=== PATIENT | male | born 1990 | race Caucasian/White ===

== ENCOUNTER 2018-12-27 06:55 | Emergency (ER) | payer SELFPAY ==
[~2018-12-27] VITALS: Ht 182.9 cm; Wt 163.3 kg
[~2018-12-27 06:55] MED LIST: ALPR0.5T7; CARV12.53; LISI1TAB10; PANT40TA3; SUCR1TAB
--- NOTE | 2018-12-27 07:13 | ED Cardiac General ---
History of Present Illness General Chief Complaint: Chest Pain Stated Complaint: CHEST PAIN History of Present Illness Date Seen by Provider: Dec 27, 2018 Time Seen by Provider: 07:05 Initial Comments Patient is a 28 y/o male who presents to the ER this morning c/o sternal CP. Pain started earlier this am after he awoke. He describes a sharp, sternal pain that is non-radiating. Pain is worse when he takes a deep breath and with some movements. He had some associated tightness in his chest and perceived this am that he was having some difficulty breathing. Symptoms spontaneously improved prior to arrival to the ER. He has a prior hx of similar symptoms which he states has been attributable to costochondritis. No recent fever, chills, cough. No recent trauma. Allergies and Home Medications Allergies Coded Allergies: Penicillins (Unverified Allergy, Unknown, 11/19/15) Home Medications Ibuprofen 800 Mg Tablet, 800 MG PO Q8H PRN for PAIN Prescribed by: WILLIE VALDERRAMA on 12/27/18 0803 Tramadol HCl 50 Mg Tablet, 50 MG PO bidprn PRN for PAIN Prescribed by: WILLIE VALDERRAMA on 12/27/18 0804 Patient Home Medication List Home Medication List Reviewed: Yes Review of Systems Review of Systems Constitutional: no symptoms reported EENTM: No Symptoms Reported Respiratory: No Symptoms Reported Cardiovascular: See HPI Gastrointestinal: No Symptoms Reported Genitourinary: No Symptoms Reported Musculoskeletal: no symptoms reported Skin: no symptoms reported Psychiatric/Neurological: No Symptoms Reported Past Driubyf-Pcbwwv-Owpzsj Hx Patient Social History Recent Foreign Travel: No Contact w/Someone Who Travel: No Past Medical History Adenoidectomy, Ear Surgery, Tonsillectomy Hypertension Reproductive Disorders: No Sexually Transmitted Disease: No Gastroesophageal Reflux, Irritable Bowel Anxiety Physical Exam Vital Signs Vital Signs - First Documented 12/27/18 07:04 Temp 97.8 Pulse 72 Resp 16 B/P (MAP) 152/95 (114) Pulse Ox 99 Capillary Refill : Height, Weight, BMI Height: '" Weight: lbs. oz. kg; BMI Method: General Appearance: No Apparent Distress HEENT: PERRL/EOMI, TMs Normal, Normal ENT Inspection Neck: Full Range of Motion, Normal Inspection Respiratory: Chest Non Tender, Lungs Clear, Normal Breath Sounds, No Accessory Muscle Use, No Respiratory Distress Cardiovascular: Regular Rate, Rhythm, No Edema Gastrointestinal: Normal Bowel Sounds Genital/Rectal: Normal Genital Exam Extremity: Normal Capillary Refill Neurologic/Psychiatric: Alert, Oriented x3 Skin: Normal Color, Warm/Dry Progress/Results/Core Measures Results/Orders Lab Results Laboratory Tests Test 12/27/18 07:25 Range/Units Sodium Level 141 135-145 MMOL/L Potassium Level 4.2 3.6-5.0 MMOL/L Chloride Level 106 98-107 MMOL/L Carbon Dioxide Level 16 L 21-32 MMOL/L Anion Gap 19 H 5-14 MMOL/L Blood Urea Nitrogen 13 7-18 MG/DL Creatinine 0.69 0.60-1.30 MG/DL Estimat Glomerular Filtration Rate > 60 BUN/Creatinine Ratio 19 Glucose Level 101 70-105 MG/DL Calcium Level 8.7 8.5-10.1 MG/DL Troponin T < 6 <=15 NG/L My Orders Orders - WILLIE VALDERRAMA DO Chest Pa/Lat (2 View) (12/27/18 07:16) Basic Metabolic Panel (12/27/18 07:16) Ibuprofen Tablet (Motrin Tablet) (12/27/18 07:30) Ekg Tracing (12/27/18 07:48) Medications Given in ED Current Medications Medications Dose Ordered Sig/Adela Route Start Time Stop Time Status Last Admin Dose Admin Ibuprofen 800 mg ONCE ONCE PO 12/27/18 07:30 12/27/18 07:31 DC 12/27/18 07:23 800 MG Vital Signs/I&O 12/27/18 07:04 Temp 97.8 Pulse 72 Resp 16 B/P (MAP) 152/95 (114) Pulse Ox 99 Progress Progress Note : Time: 07:21 Progress Note Patient is seen and examined. No acute distress. Sx that seem most c/w pleuritic vs costochondritic chest pain. Has Hx of HTN. EKG, troponin, CXR ordered. HEART Score: History: 0 EK Age: 1 Risk factors: 1 Troponin: 0 Total: 1 PERC: negative 08:00: Troponin is not elevated. BMP is revealing for mild anion gap and low CO2 most likely consistent with some mild dehydration symptoms. The patient is not ill-appearing. Plan is for discharge home. He is given a prescription for ibuprofen and tramadol for more severe pain. Patient will follow up with his primary care doctor or return to the ER for any new or worsening symptoms. With a heart score of 1 the patient has a very low risk of adverse outcome from a cardiac event. EKG is unchanged from prior. Initial ECG Impression Date: Dec 27, 2018 Initial ECG Impression Time: 07:50 Initial ECG Rate: 56 Initial ECG Rhythm: Normal Sinus, S.Jeffrey Initial ECG Intervals: Normal Initial ECG Impression: Normal Initial ECG Comparisson: Unchanged Departure Impression Primary Impression: Chest pain Disposition: HOME, SELF-CARE Condition: Stable Departure-Patient Inst. Referrals: NO,LOCAL PHYSICIAN (PCP/Family) Primary Care Physician Patient Instructions: Chest Pain That Is Not Caused by the Heart (DC) Scripts Tramadol HCl (Tramadol HCl) 50 Mg Tablet 50 MG PO bidprn PRN for PAIN, #10 TAB 0 Refills Prov: WILLIE VALDERRAMA DO 12/27/18 Ibuprofen (Ibuprofen) 800 Mg Tablet 800 MG PO Q8H PRN for PAIN, #30 TAB 0 Refills Prov: WILLIE VALDERRAMA DO 12/27/18 WILLIE VALDERRAMA DO Dec 27, 2018 07:13
[2018-12-27] MEDS ORDERED: IBUPROFEN 800 MG (MOTRIN) TAB PO ONE (07:30)
[2018-12-27 07:57] LABS: BUN/CREATININE RATIO 19; CALCIUM 8.7 MG/DL (8.5-10.1); CARBON DIOXIDE 16 MMOL/L (21-32); CHLORIDE 106 MMOL/L (98-107); CREATININE SERUM 0.69 MG/DL (0.60-1.30); GFR ESTIMATED > 60; GLUCOSE 101 MG/DL (70-105); POTASSIUM 4.2 MMOL/L (3.6-5.0); SODIUM 141 MMOL/L (135-145)
--- NOTE | 2018-12-27 07:58 | Diagnostic Imaging Report ---
INDICATION: Chest pain and shortness of breath. FINDINGS: The lungs demonstrate no focal pulmonary infiltrate or consolidation. There is no effusion. There is no pneumothorax. Heart size and mediastinal contours are appropriate. Pulmonary vascularity appears within normal limits. There is no acute osseous abnormality. IMPRESSION: 1. No radiographic evidence of an acute cardiopulmonary process. Dictated by: Dictated on workstation # [id number]
[2018-12-27] MEDS ORDERED: IBUP-1780 PO (08:03)
[2018-12-27] MEDS ORDERED: TRAM50TA2 PO (08:04)
[2018-12-27 08:09] VITALS: BP 143/82
--- OUTSIDE RECORDS SUMMARY | 2018-12-27 15:39 | XMS REPORT | Clinical Summary ---
Author Author [facility] Organization [facility] Address Unknown Phone Unavailable Care Team Providers Care Pharmacy Grad Intern Name Role Phone Francisco Lui MD Unavailable Uche Esparza MD Unavailable Source Comments Some departments are not documenting in the electronic medical record. If you do not see the information that you expected, contact Release of Information in the Health Information Management department at [phone] for further assistance in locating additional records.[facility] Allergies Comments Active Allergy Reactions Severity Noted Date Penicillins HIVES Medium 12/06/2015 Medications End Date Status Medication Sig Dispensed Refills Start Date Active ondansetron (ZOFRAN ODT) Take 4 mg by 0 4 mg rapid dissolve mouth every 8 tablet hours as needed for Nausea. Active pantoprazole DR Take 40 mg by 0 (PROTONIX) 40 mg tablet mouth daily. Active promethazine (PHENERGAN) Take 25 mg by 0 25 mg tablet mouth every 6 hours as needed for Nausea. Active sucralfate (CARAFATE) 1 Take 1 g by 0 gram tablet mouth every 6 hours. Active zolpidem (AMBIEN) 10 mg Take 10 mg by 0 tablet mouth at bedtime as needed for Sleep. Active ALPRAZolam (XANAX) 1 mg Take 1 mg by 0 tablet mouth at bedtime as needed. Active carvedilol (COREG) 25 mg Take 25 mg by 0 tablet mouth twice daily with meals. Active fluticasone (FLONASE) 50 Apply 2 0 mcg/actuation nasal spray Sprays to each nostril as directed daily. Active HYDROcodone/acetaminophen Take 1 Tab by 0 (NORCO; VICODIN) 5-325 mg mouth every 4 tablet hours as needed for Pain Active lisinopril/hydrochlorothi Take 1 Tab by 0 azide (ZESTORETIC) 20/25 mouth daily. tablet 1 Tab Active nortriptyline (PAMELOR) Take 1 Cap by 30 Cap 3 25 mg capsuleIndications: mouth at 6 Right upper quadrant bedtime abdominal pain daily. Active Problems Not on file Family History Medical History Relation Name Comments Hypertension Father Anxiety Mother COPD Mother Diabetes Mother Emphysema Mother Heart problem Sister Relation Name Status Comments Brother Alive Father Alive Mother Alive Sister Alive Social History Date Tobacco Use Types Packs/Day Years Used Quit: 12/06/2010 Former Smoker Smokeless Tobacco: Never Used Alcohol Use Drinks/Week oz/Week Comments No 0 Standard 0.0 drinks or equivalent Sex Assigned at Date Recorded Not on file Industry Job Start Date Occupation Not on file Not on file Not on file Travel End Travel History Travel Start No recent travel history available. Last Filed Vital Signs Time Taken Vital Sign Reading 12/06/2015 10:10 AM [employer] Blood Pressure 122/68 12/06/2015 10:10 AM [employer] Pulse 81 12/06/2015 10:10 AM [employer] Temperature 36.4 C (97.6 F) 12/06/2015 10:10 AM [employer] Respiratory Rate 17 - Oxygen Saturation - - Inhaled Oxygen - Concentration 12/06/2015 10:10 AM [employer] Weight 206.4 kg (455 lb 1.6 oz) 12/06/2015 10:10 AM [employer] Height 182.9 cm (6') 12/06/2015 10:10 AM [employer] Body Mass Index 61.72 Plan of Treatment Health Maintenance Due Date Last Done Comments PHYSICAL (COMPREHENSIVE) 1997 EXAM HIV SCREENING 2005 DTAP/TDAP VACCINES ( - 2008 Tdap) INFLUENZA VACCINE 05/27/2019 Results Not on filefrom Last 3 Months Insurance Payer Benefit Subscriber ID Type Phone Address Plan / Group [employer] CIGNA xxxxxxxxxxxx PPO NETWORK [facility] - [id number] Advance Directives Patient has advance care planning documents on file. For more information, please contact: [facility] [address] [place] [address]
--- OUTSIDE RECORDS SUMMARY | 2018-12-27 15:39 | XMS REPORT | Continuity of Care Document ---
Author Author [facility] Organization [facility] Address Unknown Phone Unavailable Allergies Active Description Code Type Severity Reaction Onset Reported/Identified Relationship to Patient Clinical Status Yes Penicillins [id number] Drug Allergy Unknown N/A 11/19/2015 Medications There is no data. Problems Date Dx Coded Attending Type Code Diagnosis Diagnosed By 11/19/2015 CARLOS ALBERTO BENJAMIN MD Ot K58.9 IRRITABLE BOWEL SYNDROME WITHOUT DIARRHE 11/19/2015 CARLOS ALBERTO BENJAMIN MD Ot K59.00 CONSTIPATION, UNSPECIFIED 11/19/2015 CARLOS ALBERTO BENJAMIN MD Ot R10.33 PERIUMBILICAL PAIN Procedures There is no data. Results There is no data. Encounters ACCT No. Visit Date/Time Discharge Status Pt. Type Provider Facility Loc./Unit Complaint [id number] 11/19/2015 12:19:00 11/19/2015 14:41:00 DIS Emergency CARLOS ALBERTO BENJAMIN MD [facility] ER
== END 2018-12-27 08:15 | disposition home or self-care (01) ==
LOC: EDUNIT# 06:55 → ER FS 06:58
DX: R07.81 Pleurodynia (principal); I10 Essential (primary) hypertension; K21.9 Gastro-esophageal reflux disease without esophagitis; K58.9 Irritable bowel syndrome, unspecified; F41.9 Anxiety disorder, unspecified; Z88.0 Allergy status to penicillin; Z90.89 Acquired absence of other organs
CPT/HCPCS: 36415; 71046; 80048; 84484

== ENCOUNTER 2019-01-13 05:17 | Emergency (ER) | payer SELFPAY ==
[~2019-01-13] VITALS: Ht 182.9 cm; Wt 163.3 kg
[~2019-01-13 05:17] MED LIST changes: +IBUP-1780 PO; +TRAM50TA2 PO
--- OUTSIDE RECORDS SUMMARY | 2019-01-13 05:24 | XMS REPORT | Clinical Summary ---
Author Author [facility] Organization [facility] Address Unknown Phone Unavailable Care Team Providers Care Typing Bookkeeper Name Role Phone Francisco Lui MD Unavailable Uche Esparza MD Unavailable Source Comments Some departments are not documenting in the electronic medical record. If you do not see the information that you expected, contact Release of Information in the Health Information Management department at [phone] for further assistance in locating additional records.[facility] Allergies Comments Active Allergy Reactions Severity Noted [...] Taken Vital Sign Reading 12/06/2015 10:10 AM [employer] Blood Pressure 122/68 12/06/2015 10:10 AM [employer] Pulse 81 12/06/2015 10:10 AM [employer] IN[employer] Temperature 36.4 C (97.6 F) 12/06/2015 10:10 AM [employer] Respiratory Rate 17 - Oxygen Saturation - - Inhaled Oxygen - Concentration 12/06/2015 10:10 AM [employer] INST[employer] Weight 206.4 kg (455 lb 1.6 oz) 12/06/2015 10:10 AM [employer] IN[employer] Height 182.9 cm (6') 12/06/2015 10:10 AM [employer] IN[employer] Body Mass Index 61.72 Plan of Treatment Health Maintenance Due Date Last Done Comments PHYSICAL (COMPREHENSIVE) 1997 EXAM HIV SCREENING 2005 DTAP/TDAP VACCINES ( - 2008 Tdap) INFLUENZA VACCINE 05/27/2018 Results Not on filefrom Last 3 Months Insurance Payer Benefit Subscriber ID Type Phone Address Plan / Group CIG[employer] CIGNA xxxxxxxxxxxx PPO NETWORK [facility] - [id number] Advance Directives Patient has advance care planning documents on file. For more information, please contact: [facility] [address] [place] [address]
--- OUTSIDE RECORDS SUMMARY | 2019-01-13 05:25 | XMS REPORT | Continuity of Care Document ---
Author Author [facility] Organization [facility] Address Unknown Phone Unavailable Allergies Active Description Code Type Severity Reaction Onset Reported/Identified Relationship to Patient Clinical Status Yes Penicillins [id number] Drug Allergy Unknown N/A 11/19/2015 Medications There is no data. Problems Date Dx Coded Attending Type Code Diagnosis Diagnosed By 11/19/2015 CARLOS ALBERTO BENJAMIN MD, Ot K58.9 IRRITABLE BOWEL SYNDROME WITHOUT DIARRHE 11/19/2015 CARLOS ALBERTO BENJAMIN MD Ot K59.00 CONSTIPATION, UNSPECIFIED 11/19/2015 CARLOS ALBERTO BENJAMIN MD Ot R10.33 PERIUMBILICAL PAIN 12/29/2018 WILLIE VALDERRAMA DO Ot F41.9 ANXIETY DISORDER, UNSPECIFIED 12/29/2018 WILLIE VALDERRAMA DO Ot I10 ESSENTIAL (PRIMARY) HYPERTENSION 12/29/2018 WILLIE VALDERRAMA DO Ot K21.9 GASTRO-ESOPHAGEAL REFLUX DISEASE WITHOUT 12/29/2018 WILLIE VALDERRAMA DO Ot K58.9 IRRITABLE BOWEL SYNDROME WITHOUT DIARRHE 12/29/2018 WILLIE VALDERRAMA DO Ot R07.81 PLEURODYNIA 12/29/2018 WILLIE VALDERRAMA DO Ot Z88.0 ALLERGY STATUS TO PENICILLIN 12/29/2018 WILLIE VALDERRAMA DO Ot Z90.89 ACQUIRED ABSENCE OF OTHER ORGANS Procedures There is no data. Results Test Result Range Whole blood basic metabolic panel - 12/27/18 07:25 Serum or plasma sodium measurement (moles/volume) 141 mmol/L 135-145 Serum or plasma potassium measurement (moles/volume) 4.2 mmol/L 3.6-5.0 Serum or plasma chloride measurement (moles/volume) 106 mmol/L 98-107 Carbon dioxide 16 mmol/L 21-32 Serum or plasma anion gap determination (moles/volume) 19 mmol/L 5-14 Serum or plasma urea nitrogen measurement (mass/volume) 13 mg/dL 7-18 Serum or plasma creatinine measurement (mass/volume) 0.69 mg/dL 0.60-1.30 Serum or plasma urea nitrogen/creatinine mass ratio 19 NRG Serum or plasma creatinine measurement with calculation of estimated glomerular filtration rate > NRG Serum or plasma glucose measurement (mass/volume) 101 mg/dL 70-105 Serum or plasma calcium measurement (mass/volume) 8.7 mg/dL 8.5-10.1 TROPONIN T - 12/27/18 07:25 TROPONIN T < 6 <=15 Encounters ACCT No. Visit Date/Time Discharge Status Pt. Type Provider Facility Loc./Unit Complaint [id number] 12/27/2018 06:58:00 12/27/2018 08:15:00 DIS Outpatient WILLIE VALDERRAMA DO [facility] ER FS CHEST PAIN [id number] 11/19/2015 12:19:00 11/19/2015 14:41:00 DIS Emergency CARLOS ALBERTO BENJAMIN MD [facility] ER ABD PAIN/NAUSEA [id number] 01/13/2019 05:20:00 ACT Emergency LOLY EDWARDS MD [facility] ER FS CHEST PAIN, WOKE UP LT SIDE WAS NUMB
--- NOTE | 2019-01-13 05:47 | ED Chest Pain ---
General Chief Complaint: Chest Pain Stated Complaint: CHEST PAIN, WOKE UP LT SIDE WAS NUMB Source: patient (LOLY EDWARDS MD) History of Present Illness Date Seen by Provider: Jan 13, 2019 Time Seen by Provider: 05:15 Initial Comments Patient is a 28-year-old male presenting with complaints of left-sided chest pain that was sharp and burning in nature. He states that it woke him up about 20 minutes prior to coming into the emergency department. He denies having pain like this in the past. He states that this feels different than when he's had reflux and GI issues. He has been having pain in his left shoulder and numbness going into his left arm with weakness for the last few weeks. He was supposed to see Harmeet Marie with orthopedics but states that they want 200 dollars upfront to be seen able to afford this. He has been taking increased doses of ibuprofen to try and help with his shoulder. He states that he tried waiting for the pain to go away but when it was not getting better he finally came into the emergency department. He states that it has eased up some by the time he got here. He has not taken anything for the pain. (LOLY EDWARDS MD) Allergies and Home Medications Allergies Coded Allergies: Penicillins (Unverified Allergy, Unknown, 11/19/15) morphine (Verified Allergy, Unknown, 01/13/19) Home Medications Alprazolam 1 Mg Tablet, 1 MG PO DAILY, (Reported) Carvedilol 12.5 Mg Tablet, BID, (Reported) Escitalopram Oxalate 20 Mg Tablet, 20 MG PO DAILY, (Reported) Ibuprofen 800 Mg Tablet, 800 MG PO Q8H PRN for PAIN Prescribed by: WILLIE VALDERRAMA on 12/27/18 0803 Lisinopril 20 Mg Tablet, 20 MG PO DAILY, (Reported) Patient Home Medication List Home Medication List Reviewed: Yes (LOLY EDWARDS MD) Review of Systems Review of Systems Constitutional: No chills, No dizziness, No fever, No malaise EENTM: No Symptoms Reported Respiratory: Denies Cough, Denies Shortness of Air Cardiovascular: See HPI, Chest Pain Gastrointestinal: Denies Abdominal Pain, Denies Nausea Genitourinary: Denies Burning Musculoskeletal: see HPI, joint pain (left shoulder pain) Skin: No rash Psychiatric/Neurological: Anxiety (worried about his chest pain and what is causing his left shoulder pain and numbness/weakness into left arm) (LOLY EDWARDS MD) Past Vuwdxly-Hrlfiz-Xoyehu Hx Past Med/Social Hx: Reviewed Nursing Past Med/Soc Hx (LOLY EDWARDS MD) Patient Social History Alcohol Use: Rarely Uses Smoking Status: Former Smoker Type Used: Cigarettes Recent Foreign Travel: No Contact w/Someone Who Travel: No (LOLY EDWARDS MD) Past Medical History Surgeries: Yes Adenoidectomy, Ear Surgery, Tonsillectomy Respiratory: No Cardiac: Yes Hypertension Neurological: No Reproductive Disorders: No Sexually Transmitted Disease: No Gastrointestinal: Yes Gastroesophageal Reflux, Irritable Bowel Musculoskeletal: No Endocrine: No HEENT: No Cancer: No Psychosocial: Yes Anxiety, Depression Integumentary: No Blood Disorders: No (LOLY EDWARDS MD) Physical Exam Vital Signs Vital Signs - First Documented 01/13/19 05:19 Temp 97.0 Pulse 70 Resp 18 B/P (MAP) 155/84 (107) O2 Delivery Room Air (ZOLTAN MILLER) Vital Signs Capillary Refill : (LOYL EDWARDS MD) Height, Weight, BMI Height: 6'0" Weight: 360lbs. oz. 163.457100vw; BMI Method:Stated General Appearance: No Apparent Distress, WD/WN, Obese HEENT: PERRL/EOMI, Normal ENT Inspection, Pharynx Normal Neck: Full Range of Motion, Normal Inspection, Supple, Tender Lateral (left greater than right); No Tender Midline Respiratory: Lungs Clear, Normal Breath Sounds, No Accessory Muscle Use, No Respiratory Distress, Other (tender to palpation on left side of chest wall by left anterior shoulder) Cardiovascular: Regular Rate, Rhythm, No Edema, No Gallop, No JVD, Normal Peripheral Pulses Gastrointestinal: Normal Bowel Sounds, No Organomegaly, No Pulsatile Mass, Non Tender, Soft, Other (obese abdomen) Rectal: Deferred Extremity: Normal Capillary Refill, Other (pain to left shoulder with palpation and range of motion) Neurologic/Psychiatric: Alert, Oriented x3, sales merchandising specialist II-XII Norm as Tested Skin: Normal Color, Warm/Dry; No Diaphoresis (LOLY EDWARDS MD) Progress/Results/Core Measures Results/Orders Lab Results Laboratory Tests Test 01/13/19 05:32 Range/Units White Blood Count 6.4 4.3-11.0 10^3/uL Red Blood Count 5.52 4.35-5.85 10^6/uL Hemoglobin 14.9 13.3-17.7 G/DL Hematocrit 45 40-54 % Mean Corpuscular Volume 82 80-99 FL Mean Corpuscular Hemoglobin 27 25-34 PG Mean Corpuscular Hemoglobin Concent 33 32-36 G/DL Red Cell Distribution Width 13.7 10.0-14.5 % Platelet Count 136 130-400 10^3/uL Mean Platelet Volume 12.4 H 7.4-10.4 FL Neutrophils (%) (Auto) 50 42-75 % Lymphocytes (%) (Auto) 40 12-44 % Monocytes (%) (Auto) 7 0-12 % Eosinophils (%) (Auto) 2 0-10 % Basophils (%) (Auto) 1 0-10 % Neutrophils # (Auto) 3.2 1.8-7.8 X 10^3 Lymphocytes # (Auto) 2.6 1.0-4.0 X 10^3 Monocytes # (Auto) 0.4 0.0-1.0 X 10^3 Eosinophils # (Auto) 0.1 0.0-0.3 10^3/uL Basophils # (Auto) 0.0 0.0-0.1 10^3/uL Prothrombin Time 13.8 12.2-14.7 SEC INR Comment 1.1 0.8-1.4 Activated Partial Thromboplast Time 31 24-35 SEC Sodium Level 140 135-145 MMOL/L Potassium Level 3.8 3.6-5.0 MMOL/L Chloride Level 101 98-107 MMOL/L Carbon Dioxide Level 20 L 21-32 MMOL/L Anion Gap 19 H 5-14 MMOL/L Blood Urea Nitrogen 16 7-18 MG/DL Creatinine 0.90 0.60-1.30 MG/DL Estimat Glomerular Filtration Rate > 60 BUN/Creatinine Ratio 18 Glucose Level 94 70-105 MG/DL Calcium Level 9.5 8.5-10.1 MG/DL Corrected Calcium 9.4 8.5-10.1 MG/DL Magnesium Level 1.9 1.8-2.4 MG/DL Total Bilirubin 0.6 0.1-1.0 MG/DL Aspartate Amino Transf (AST/SGOT) 16 5-34 U/L Alanine Aminotransferase (ALT/SGPT) 24 0-55 U/L Alkaline Phosphatase 90 40-136 U/L Troponin T 6 <=15 NG/L Pro-B-Type Natriuretic Peptide 19.0 <75.0 PG/ML Total Protein 7.0 6.4-8.2 GM/DL Albumin 4.1 3.2-4.5 GM/DL (ZOLTAN MILLER) Medications Given in ED Current Medications Medications Dose Ordered Sig/Adela Route Start Time Stop Time Status Last Admin Dose Admin Al Hydrox/Mg Hydrox/Simethicone 30 ml ONCE ONCE PO 01/13/19 06:15 01/13/19 06:28 DC 01/13/19 06:15 30 ML Lidocaine HCl 15 ml ONCE ONCE PO 01/13/19 06:15 01/13/19 06:28 DC 01/13/19 06:16 15 ML (ZOLTAN MILLER) Vital Signs/I&O 01/13/19 01/13/19 05:19 05:19 Temp 97.0 Pulse 70 Resp 18 B/P (MAP) 155/84 (107) O2 Delivery Room Air (ZOLTAN MILLER) Progress Progress Note : Time: 05:30 Progress Note Obtained an electrocardiogram which shows no acute changes. Will check labs as well. Based on his complaint of left-sided numbness will also obtain a cervical spine CT scan. Will try a GI cocktail since he also has a history of GI reflux issues and has admitted to taking increased doses of ibuprofen for his left shoulder and arm issues that have been bothering him in the last few weeks. Care will be passed to Dr. Miller at shift change pending test results and disposition. (LOLY EDWARDS MD) Progress Note : Progress Note EDACS 7 points. Low risk by the EDACS Score. If the patient also has: (1) EKG without new ischemic changes and (2) negative initial and 2-hour troponins, then this patient is safe for discharge to early outpatient follow-up investigation (or proceed to earlier inpatient testing). If EKG with ischemic changes or positive troponin, they are not low risk and require normal risk stratification. (ZOLTAN MILLER) Initial ECG Impression Date: Jan 13, 2019 Initial ECG Impression Time: 05:26 Initial ECG Rate: 69 Initial ECG Rhythm: Normal Sinus Initial ECG Intervals: Normal Initial ECG Intervals MS 164 ms. QT interval of 392 ms and QTc of [address] elevation and no change from prior tracings. Initial ECG Impression: Normal Initial ECG Comparisson: Unchanged (LOLY EDWARDS MD) Comment Negative for ST elevation or depression. (ZOLTAN MILLER) Diagnostic Imaging Diagonstic Imaging: Xray Plain Films/CT/US/NM/MRI: chest Comments No acute cardiopulmonary processes noted. Reviewed: Reviewed by Me Diagonstic Imaging: CT (noncontrast) Plain Films/CT/US/NM/MRI: c-spine Comments Negative for fracture or malalignment. It's cervical radiculopathy exists, MRI cervical spine some more appropriate modality for evaluation. Reviewed: Reviewed by Me (ZOLTAN MILLER) Transfer of Care Time: 06:00 Care transferred to: Angela (ZOLTAN MILLER) Departure Impression Primary Impression: Musculoskeletal chest pain Additional Impressions: Musculoskeletal arm pain Qualified Codes: M79.602 - Pain in left arm Paresthesia and pain of left extremity Disposition: HOME, SELF-CARE Condition: Stable Departure-Patient Inst. Decision time for Depature: 06:57 (ZOLTAN MILLER) Referrals: MARQUISE LUCERO MD (PCP/Family) Primary Care Physician Patient Instructions: Chest Pain That Is Not Caused by the Heart (DC) Add. Discharge Instructions: Your pain does not seem to be from the heart or your stomach however it's probably related to local joint inflammation in your upper and lower extremities. You may benefit from changing to a different NSAID such as Naprosyn one to 2 capsules twice a day. You can use topical creams that they help. Follow-up with either orthopedics or you can try a chiropractor. If you want to try physical therapy your primary care doctor can make referral. It's paramount that to reduce joint inflammation you continue your weight loss. Doing calisthenics several times a day to help limber up the joints can be helpful in the short-term. Exercise and reasonable caloric restriction or useful in losing weight. All discharge instructions reviewed with patient and/or family. Voiced understanding. LOLY EDWARDS MD Jan 13, 2019 05:47 ZOLTAN MILLER Jan 13, 2019 06:35
[2019-01-13 05:59] LABS: BASOPHILS % (AUTO) 1 % (0-10); EOSINOPHILS # (AUTO) 0.1 10^3/uL (0.0-0.3); EOSINOPHILS % (AUTO) 2 % (0-10); HEMATOCRIT 45 % (40-54); HEMOGLOBIN 14.9 G/DL (13.3-17.7); LYMPHOCYTES # (AUTO) 2.6 X 10^3 (1.0-4.0); LYMPHOCYTES % (AUTO) 40 % (12-44); MEAN CORPUSCULAR HEMOGLOBIN 27 PG (25-34); MEAN CORPUSCULAR HGB CONC 33 G/DL (32-36); MEAN CORPUSCULAR VOLUME 82 FL (80-99); MEAN PLATELET VOLUME 12.4 FL (7.4-10.4); MONOCYTES # (AUTO) 0.4 X 10^3 (0.0-1.0); MONOCYTES % (AUTO) 7 % (0-12); NEUTROPHILS # (AUTO) 3.2 X 10^3 (1.8-7.8); NEUTROPHILS % (AUTO) 50 % (42-75); PLATELET COUNT 136 10^3/uL (130-400); RED CELL DISTRIBUTION WIDTH 13.7 % (10.0-14.5); WHITE BLOOD COUNT 6.4 10^3/uL (4.3-11.0)
[2019-01-13] MEDS ORDERED: LIDOCAINE 2% VISCOUS 15 ML UDC ONE (06:13)
[2019-01-13] MEDS ORDERED: ANTACID SUSP 30 ML UDC (MYLANTA) ONE (06:13)
[2019-01-13] MEDS ORDERED: ANTACID SUSP 30 ML UDC (MYLANTA) PO ONE (06:15)
[2019-01-13] MEDS ORDERED: LIDOCAINE 2% VISCOUS 15 ML UDC PO ONE (06:15)
[2019-01-13 06:17] LABS: INR 1.1 (0.8-1.4); PROTHROMBIN TIME PATIENT 13.8 SEC (12.2-14.7)
[2019-01-13] MEDS ORDERED: ESCI20TA PO (06:21)
[2019-01-13] MEDS ORDERED: ALPR1TAB7 PO (06:21)
[2019-01-13] MEDS ORDERED: LISI-552 PO (06:21)
[2019-01-13 06:23] LABS: ALANINE AMINOTRANSFERASE 24 U/L (0-55); ALKALINE PHOSPHATASE 90 U/L (40-136); BILIRUBIN,TOTAL 0.6 MG/DL (0.1-1.0); BUN/CREATININE RATIO 18; CALCIUM 9.5 MG/DL (8.5-10.1); CARBON DIOXIDE 20 MMOL/L (21-32); CHLORIDE 101 MMOL/L (98-107); GFR ESTIMATED > 60; GLUCOSE 94 MG/DL (70-105); MAGNESIUM 1.9 MG/DL (1.8-2.4); POTASSIUM 3.8 MMOL/L (3.6-5.0); SODIUM 140 MMOL/L (135-145)
[2019-01-13 06:24] LABS: ALBUMIN 4.1 GM/DL (3.2-4.5)
[2019-01-13 06:48] VITALS: BP 157/79
[2019-01-13 07:05] VITALS: BP 140/70
--- NOTE | 2019-01-13 08:01 | Diagnostic Imaging Report ---
INDICATION: Chest numbness and left-sided chest pain. Comparison with 12/27/2018. FINDINGS: Portable chest shows the lungs to be well-aerated and clear. Heart is not enlarged. No pulmonary edema. No hilar adenopathy. No pneumothorax or pleural effusion. No bony abnormalities. IMPRESSION: Normal portable chest. Dictated by: Dictated on workstation # [id number]
--- NOTE | 2019-01-13 08:02 | Diagnostic Imaging Report ---
PROCEDURE: CT cervical spine without contrast. TECHNIQUE: Multiple contiguous axial images were obtained through the cervical spine without the use of intravenous contrast. Sagittal and coronal reformations were then performed. Auto Exposure Controls were utilized during the CT exam to meet ALARA standards for radiation dose reduction. INDICATION: Neck and chest pain. FINDINGS: Sagittal and coronal reformatted images show good alignment of vertebral bodies. Body height is well maintained without fracture. Facets show good alignment. No hypertrophic bony changes. No evidence of bony spinal stenosis. The surrounding soft tissues are normal. IMPRESSION: Negative CT cervical spine. Dictated by: Dictated on workstation # [id number]
== END 2019-01-13 07:05 | disposition home or self-care (01) ==
LOC: EDUNIT# 05:17 → ER FS 05:20
DX: R07.89 Other chest pain (principal); M79.602 Pain in left arm; R20.2 Paresthesia of skin; I10 Essential (primary) hypertension; K21.9 Gastro-esophageal reflux disease without esophagitis; K58.9 Irritable bowel syndrome, unspecified; F41.9 Anxiety disorder, unspecified; F32.9 Major depressive disorder, single episode, unspecified; Z88.0 Allergy status to penicillin; Z88.5 Allergy status to narcotic agent; Z87.891 Personal history of nicotine dependence; Z90.89 Acquired absence of other organs
CPT/HCPCS: 36415; 71045; 72125; 80053; 83735; 83880; 84484; 85025; 85610; 85730; 93005; 93041

== ENCOUNTER 2019-03-21 23:55 | Emergency (ER) | payer SELFPAY ==
[~2019-03-21] VITALS: Ht 182.9 cm; Wt 164.2 kg
[~2019-03-21 23:55] MED LIST changes: +ALPR1TAB7 PO; +ESCI20TA PO; +LISI-552 PO
[2019-03-22] MEDS ORDERED: LACTATED RINGERS 1,000 ML IV ONE (00:06)
--- NOTE | 2019-03-22 00:13 | ED Headache ---
General Stated Complaint: HEADACHE Source: patient Exam Limitations: no limitations History of Present Illness Date Seen by Provider: March 22, 2019 Time Seen by Provider: 00:00 Initial Comments Patient presents to ER by private conveyance with chief complaint of 3 or 4 days now of headache persistent. It's on the right side of his head, shooting from the front towards the back. He has a history of migraine headaches which are usually frontal. He said he's been working outside a lot not drinking very much and feels like he may be a little dehydrated as well. Typically he says he becomes and get some Toradol and some other medicine and it gets better. He's been using Tylenol 1000 mg 4 hours ago with minimal relief. He's tried sumatript an in the past but did not like the way it made him feel. He's been told not to use NSAIDs unless necessary because of GI distress. He's having some mild nausea but no vomiting. He feels dehydrated because of his exposure to heat and not using the air conditioner in his house. He has no runny nose, cough, fevers or chills. He has no aura but he did have photophobia and phonophobia. Allergies and Home Medications Allergies Coded Allergies: Penicillins (Unverified Allergy, Unknown, 11/19/15) morphine (Verified Allergy, Unknown, 01/13/19) Home Medications Alprazolam 1 Mg Tablet, 1 MG PO DAILY, (Reported) Carvedilol 12.5 Mg Tablet, BID, (Reported) Escitalopram Oxalate 20 Mg Tablet, 20 MG PO DAILY, (Reported) Ibuprofen 800 Mg Tablet, 800 MG PO Q8H PRN for PAIN Prescribed by: WILLIE VALDERRAMA on 12/27/18 0803 Lisinopril 20 Mg Tablet, 20 MG PO DAILY, (Reported) Patient Home Medication List Home Medication List Reviewed: Yes Review of Systems Review of Systems Constitutional: No chills, No diaphoresis, No fever, No malaise Eyes: Denies Blindness, Denies Blurred Vision Ears, Nose, Mouth, Throat: denies ear pain, denies ear discharge Respiratory: No cough, No phlegm Cardiovascular: No chest pain, No edema Gastrointestinal: No abdominal pain; loss of appetite, nausea; No vomiting Past Ytbrnaa-Jxbdlb-Hidofp Hx Patient Social History Alcohol Use: Denies Use Recreational Drug Use: No Smoking Status: Current Everyday Smoker Type Used: Cigarettes 2nd Hand Smoke Exposure: No Recent Hopitalizations: No Seasonal Allergies Seasonal Allergies: No Past Medical History Surgeries: No Adenoidectomy, Tonsillectomy Respiratory: No Cardiac: Yes (chest pain, essential hypertension, acute costochondritis) Hypertension Reproductive Disorders: No Sexually Transmitted Disease: No Genitourinary: Yes (renal insufficiency) Kidney Stones Gastrointestinal: Yes (chronic gastritis, abd pain, cyclical vomiting w/ nausea) Gastroesophageal Reflux, Irritable Bowel Musculoskeletal: Yes (right wrist pain, exercised-induced cramps of lower extremity) Endocrine: No HEENT: Yes (acute recurrent maxillary sinusitis, acute suppurative otitis media of rt) Cancer: No Psychosocial: Yes Anxiety Integumentary: No Blood Disorders: No Physical Exam Vital Signs Vital Signs - First Documented 03/21/19 23:58 Temp 97.1 Pulse 93 Resp 18 B/P (MAP) 160/98 (118) Pulse Ox 97 O2 Delivery Room Air Capillary Refill : Height, Weight, BMI Height: 6'0" Weight: 360lbs. oz. 163.066288jk; BMI Method:Stated General Appearance: mild distress, obese HEENT: PERRL/EOMI, normal ENT inspection, TMs normal, pharynx normal Neck: full range of motion, normal inspection Cardiovascular: normal peripheral pulses, regular rate, rhythm, no edema Respiratory: no respiratory distress, no accessory muscle use Extremities: no pedal edema, normal capillary refill Psychiatric: alert, oriented x 3 Crainal Nerves: normal hearing, normal speech, PERRL Coordination/Gait: normal gait Skin: warm/dry, other (mild first-degree sunburns on the sun exposed surface of his arms and face) Progress/Results/Core Measures Results/Orders My Orders Orders - ZOLTAN FRAZIER Ed Iv/Invasive Line Start (03/22/19 00:06) Lactated Ringers (Lr 1000 Ml Iv Solution (03/22/19 00:06) Ketorolac Injection (Toradol Injection) (03/22/19 00:15) Prochlorperazine Injection (Compazine In (03/22/19 00:15) Famotidine Tablet (Pepcid Tablet) (03/22/19 00:15) Medications Given in ED Current Medications Medications Dose Ordered Sig/Adela Route Start Time Stop Time Status Last Admin Dose Admin Famotidine 20 mg ONCE ONCE PO 03/22/19 00:15 03/22/19 00:16 DC 03/22/19 00:19 20 MG Ketorolac Tromethamine 60 mg ONCE ONCE IVP 03/22/19 00:15 03/22/19 00:16 DC 03/22/19 00:20 60 MG Lactated Ringer's 1,000 ml @ 0 mls/hr Q0M ONCE IV 03/22/19 00:06 03/22/19 00:08 DC 03/22/19 00:19 999 MLS/HR Prochlorperazine Edisylate 10 mg ONCE ONCE IV 03/22/19 00:15 03/22/19 00:16 DC 03/22/19 00:19 10 MG Vital Signs/I&O 03/21/19 23:58 Temp 97.1 Pulse 93 Resp 18 B/P (MAP) 160/98 (118) Pulse Ox 97 O2 Delivery Room Air Progress Progress Note : Time: 00:11 Progress Note Toradol, Compazine and Pepcid. We'll give him a liter of LR and let him rest. He can take Benadryl when he gets home and try to get some sleep. Departure Impression Primary Impression: Migraine headache without aura Qualified Codes: G43.001 - Migraine without aura, not intractable, with status migrainosus Disposition: 01 HOME, SELF-CARE Condition: Stable Departure-Patient Inst. Decision time for Depature: 00:26 Referrals: MARQUISE LUCERO MD (PCP/Family) Primary Care Physician Patient Instructions: Migraine Headache (DC) Add. Discharge Instructions: Continue to use Tylenol 1000 mg every 8 hours as needed for headache. Get some sleep and drink lots of fluids. Gatorade or Powerade would be recommended. When you get home tonight take 2 tablets of Benadryl to help with sleep as well as prevent uncomfortable side effects from the Compazine. ZOLTAN FRAZIER March 22, 2019 00:13
[2019-03-22] MEDS ORDERED: FAMOTIDINE 20 MG (PEPCID) TABLET PO ONE (00:15)
[2019-03-22] MEDS ORDERED: PROCHLORPERAZINE 10 MG/2ML INJ (COMPAZINE) IV ONE (00:15)
[2019-03-22] MEDS ORDERED: KETOROLAC 30 MG/ML VIAL IVP ONE (00:15)
[2019-03-22 00:43] VITALS: BP 160/98
== END 2019-03-22 00:43 | disposition home or self-care (01) ==
LOC: EDUNIT# 23:55 → ER FS 23:57
DX: G43.909 Migraine, unspecified, not intractable, without status migrainosus (principal); I10 Essential (primary) hypertension; K58.9 Irritable bowel syndrome, unspecified; K21.9 Gastro-esophageal reflux disease without esophagitis; F41.9 Anxiety disorder, unspecified; F17.210 Nicotine dependence, cigarettes, uncomplicated; Z98.890 Other specified postprocedural states; Z87.19 Personal history of other diseases of the digestive system; Z87.442 Personal history of urinary calculi; Z90.89 Acquired absence of other organs; Z88.0 Allergy status to penicillin; Z88.5 Allergy status to narcotic agent
CPT/HCPCS: 96374; 96375

== ENCOUNTER 2019-04-10 20:08 | Emergency (ER) | payer SELFPAY ==
[~2019-04-10] VITALS: Ht 182.9 cm; Wt 165.6 kg
--- OUTSIDE RECORDS SUMMARY | 2019-04-10 20:14 | XMS REPORT | Encounter Summary ---
Author Author [facility] Organization [facility] Address Unknown Phone Unavailable Care Team Providers Care Business Travel Consultant Name Role Phone Francisco Lui MD Unavailable Reason for Visit * Reason Comments Abdominal pain Nausea every day Vomiting every day Chest Pain Dizziness Weight Loss in a month 30 lbs Encounter Details Care Team Description Date Type Department Francisco Lui MD [address] [facility] Lvl [address] [place] [address] Right upper quadrant abdominal pain (Primary Dx) 12/06/[address] [facility] - Internal Medicine [address] [place] [address] Social History Date Tobacco Use Types Packs/Day Years Used Quit: 12/06/2010 Former Smoker Smokeless Tobacco: Never Used Drinks/Week oz/Week Comments Alcohol Use 0 Standard drinks or equivalent 0.0 No Sex Assigned at Date Recorded Not on file Industry Job Start Date Occupation Not on file Not on file Not on file Travel End Travel History Travel Start No recent travel history available. documented as of this encounter Last Filed Vital Signs Reading Time Taken Comments Vital Sign 122/68 12/06/2015 10:10 AM PAINT SPRAY TENDER Blood Pressure 81 12/06/2015 10:10 AM PAINT SPRAY TENDER Pulse 36.4 C (97.6 F) 12/06/2015 10:10 AM PAINT SPRAY TENDER Temperature 17 12/06/2015 10:10 AM PAINT SPRAY TENDER Respiratory Rate - - Oxygen Saturation - - Inhaled Oxygen Concentration 206.4 kg (455 lb 1.6 oz) 12/06/2015 10:10 AM PAINT SPRAY TENDER Weight 182.9 cm (6') 12/06/2015 10:10 AM PAINT SPRAY TENDER Height 61.72 12/06/2015 10:10 AM PAINT SPRAY TENDER Body Mass Index documented in this encounter Patient Instructions * Patient Instructions* Vale Mcclure RN - 12/06/2015 10:45 AM PAINT SPRAY TENDER Please start taking nortriptyline 25mg daily at bedtime. Please call with update of symptoms in 2 weeks. Please schedule your ultrasound before you leave today. If you have any questions or concerns please contact Dr. Hu Collazo 's yenny se, at [phone]. T SPRAY TENDER documented in this encounter Progress Notes * Francisco Lui MD - 12/06/2015 10:20 AM PAINT SPRAY TENDER Date of Service: 12/06/2015 Subjective: Jin Borges is a 25 y.o. male. History of Present Illness This is a 25-year-old male, who has been referred to us for the evalua tion of nausea and vomiting. He has been complaining of nausea and vomiting for the last several months. He also complains of right upper quadrant pain along with pain in the epigastrium in the retrosternal area. He describes this as a b urning and sharp pain. It can happen anytime of the day. It can happen empty s tomach or after meals. It goes back to the shoulder and to the back. Usually, the pain will last for about 30 minutes to one hour. Gradually, it is resolved by itself. He specifically denies any specific aggravating or relieving factors . As far as the vomitings are concerned, he usually has about a couple of vomit ings a day. He has been taking Carafate and pantoprazole without much benefit. He has had extensive investigations in the past. He has had multiple endoscopie s. One of them showed esophagitis along with hiatal hernia. Biopsies were nega tive for H. pylori. Colonoscopy showed one tubular adenoma. He had a HIDA scan done that showed that the gallbladder ejection fraction was 57%. Ultrasound of the abdomen did not reveal any gallstones a couple of years ago. CT scan of the abdomen was also unremarkable. He is single, does not smoke or drink alcohol. 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 His grandfather had history of prostate cancer. (DOC:[id number]) Review of Systems Constitutional: Positive for appetite change. Respiratory: Positive for shortness of breath. Cardiovascular: Positive for chest pain. Gastrointestinal: Positive for nausea, vomiting, abdominal pain, diarrhea and co nstipation. Musculoskeletal: Positive for back pain and neck pain. Neurological: Positive for dizziness, weakness, light-headedness, numbness and h eadaches. Psychiatric/Behavioral: The patient is nervous/anxious. All other systems reviewed and are negative. Comprehensive 10 point ROS taken, and otherwise negative except as above. Active Ambulatory Problems Diagnosis Date Noted No Active Ambulatory Problems Resolved Ambulatory Problems Diagnosis Date Noted No Resolved Ambulatory Problems Past Medical History Diagnosis Date Essential hypertension IBS (irritable bowel syndrome) Acid reflux GERD (gastroesophageal reflux disease) Bone spur Anxiety disorder History Social History Marital Status: N/A Spouse Name: N/A Number of Children: N/A Years of Education: N/A Social History Main Topics Smoking status: Former Smoker Quit date: 12/06/2010 Smokeless tobacco: Never Used Alcohol Use: No Drug Use: No Sexual Activity: Not on file Other Topics Concern Not on file Social History Narrative No narrative on file Family History Problem Relation Age of Onset Diabetes Mother COPD Mother Emphysema Mother Anxiety Mother Hypertension Father Heart problem Sister Allergies Allergen Reactions Penicillins HIVES There are no active problems to display for this patient. Objective: ALPRAZolam (XANAX) 1 mg tablet Take 1 mg by mouth at bedtime as needed. carvedilol (COREG) 25 mg tablet Take 25 mg by mouth twice daily with meals. fluticasone (FLONASE) 50 mcg/actuation nasal spray Apply 2 Sprays to each no stril as directed daily. HYDROcodone/acetaminophen (NORCO; VICODIN) 5-325 mg tablet Take 1 Tab by vitaly th every 4 hours as needed for Pain lisinopril/hydrochlorothiazide (ZESTORETIC) 20/25 tablet 1 Tab Take 1 Tab by mouth daily. ondansetron (ZOFRAN ODT) 4 mg rapid dissolve tablet Take 4 mg by mouth every 8 hours as needed for Nausea. pantoprazole DR (PROTONIX) 40 mg tablet Take 40 mg by mouth daily. promethazine (PHENERGAN) 25 mg tablet Take 25 mg by mouth every 6 hours as n eeded for Nausea. sucralfate (CARAFATE) 1 gram tablet Take 1 g by mouth every 6 hours. zolpidem (AMBIEN) 10 mg tablet Take 10 mg by mouth at bedtime as needed for Sleep. Filed Vitals: 12/06/15 1010 BP: 122/68 Pulse: 81 Temp: 36.4 C (97.6 F) TempSrc: Oral Resp: 17 Height: 182.9 cm (72") Weight: 206.432 kg (455 lb 1.6 oz) Body mass index is 61.71 kg/(m^2). Physical Exam General appearance alert, cooperative, no distress, appears stated age, obese Head Normocephalic, without obvious abnormality, atraumatic Eyes conjunctivae/corneas clear. EOM's intact. pupils equally round, accommodat ion normal. Nose Nares normal. No drainage or sinus tenderness. Throat Lips, mucosa, and tongue normal. Teeth and gums normal Neck supple, symmetrical, trachea midline, and no JVD Back symmetric, no curvature. ROM normal. No CVA tenderness Lungs clear to auscultation bilaterally Chest wall no tenderness Heart regular rate and rhythm, S1, S2 normal, no murmur, click, rub or gallop Abdomen soft, non-tender. Bowel sounds normal. No masses, No organomegaly Extremities extremities normal, atraumatic, no cyanosis or edema Pulses 2+ and symmetric Skin Skin color, texture, turgor normal. No rashes or lesions Neurologic Normal Assessment and Plan: This is a 25-year-old male, who is morbidly obese and has been having nausea and vomiting along with upper abdominal pain, mainly in the right upper q uadrant and epigastrium as well as in the retrosternal area. He denies any spec ific aggravating or relieving factors. The abdominal pain can occur empty stoma ch or even after meals. He has had upper endoscopy, colonoscopy, HIDA scan, and CT scan. Upper endoscopy has shown evidence of esophagitis along with hiatal h ernia. Biopsies were negative for H pylori. Colonoscopy showed one small tubul ar adenoma. HIDA scan showed normal gallbladder ejection fraction. CT scan was normal. Ultrasound done two years ago was also unremarkable without any eviden ce of gallstone. I discussed with the patient that the possibility for his abdominal pain include biliary pain related to gallstones (although the USG was negative), as well as functional abdominal pain or non-ulcer dyspepsia. We will continue the pantopraz ole twice a day, and I asked him to discontinue the Carafate. We will start him on nortriptyline 25 mg p.o. nightly as a pain-modulating agent for functional abdominal pain.The patient was asked to call us if he does not f eel any improvement on the current dose of nortriptyline and if that were the ca se, then we will increase the dose. We will also schedule him for an ultrasound of the gallbladder. The reason to repeat it would be to rule out any evidence of gallstone. If the ultrasound gaudencio ws gallstone, then we will refer him to surgery for cholecystectomy. Follow up in 8 to 10 weeks. Thank you for allowing us to participate in his care and please feel free to linda l us if you have any questions. ([id number]) T SPRAY TENDER documented in this encounter Plan of Treatment Not on filedocumented as of this encounter Results * US ABDOMEN COMPLETE (12/25/2015 11:50 AM PAINT SPRAY TENDER) Specimen Impressions Performed At 1. Limited evaluation of the abdomen due to patient's body habitus and gas [facility] filled bowel loops. 2. Moderate hepatomegaly with diffuse hepatic steatosis. 3. No definite sonographic evidence of cholelithiasis, cholecystitis or biliary tract disease. Finalized by Sumeet Galloway M.D. on 12/25/2015 2:46 PM. Dictated by Sumeet Galloway M.D. on 12/25/2015 2:38 PM. Narrative Performed At Abdominal ultrasound ABDOMINAL ULTRASOUND [facility] Clinical Indication:Male, 25 years old. Right upper quadrant abdominal pain. Rule out gallstones. Technique:Multiple real-time grayscale and color doppler sonographic images were obtained through the abdomen. Comparison: None FINDINGS: Sonographic evaluation of the abdomen is somewhat limited due to patient's body habitus and presence of bowel gas limiting evaluation of midline structures. Abdominal Aorta and IVC: The abdominal aorta and IVC are not well visualized due to presence of gas filled bowel loops. Pancreas: The body of the pancreas appear grossly unremarkable. The head and tail of the pancreas are not well seen due to overlying gas filled bowel loops. Liver and biliary system: The liver is enlarged measuring 23.6 centimeters in length. There is diffuse hepatic steatosis. No definite hepatic mass is identified. No biliary ductal dilatation is seen. No gross evidence of cholelithiasis, gallbladder wall thickening, or pericholecystic fluid is noted. No sonographic Dye's sign was elicited during the course of the examination. Kidneys and Urinary Bladder: The kidneys are normal in size. The right kidney measures 13.3 cm x 5.4 cm while the left kidney measures 13.6 cm x 6.0 cm. No gross evidence of renal mass, hydronephrosis, or definite nephrolithiasis is identified. The urinary bladder appears grossly unremarkable. Spleen: The spleen is normal in size measuring 11.9 cm in length. No definite focal splenic lesion is identified. Ascites: No abdominal ascites is identified. Procedure Note Interface, Radiant Results - 12/25/2015 2:49 PM PAINT SPRAY TENDER Abdominal ultrasound ABDOMINAL ULTRASOUND Clinical Indication: Male, 25 years old. Right upper quadrant abdominal pain. Rule out gallstones. Technique: Multiple real-time grayscale and color doppler sonographic images were obtained through the abdomen. Comparison: None FINDINGS: Sonographic evaluation of the abdomen is somewhat limited due to patient's body habitus and presence of bowel gas limiting evaluation of midline structures. Abdominal Aorta and IVC: The abdominal aorta and IVC are not well visualized due to presence of gas filled bowel loops. Pancreas: The body of the pancreas appear grossly unremarkable. The head and tail of the pancreas are not well seen due to overlying gas filled bowel loops. Liver and biliary system: The liver is enlarged measuring 23.6 centimeters in length. There is diffuse hepatic steatosis. No definite hepatic mass is identified. No biliary ductal dilatation is seen. No gross evidence of cholelithiasis, gallbladder wall thickening, or pericholecystic fluid is noted. No sonographic Dye's sign was elicited during the course of the examination. Kidneys and Urinary Bladder: The kidneys are normal in size. The right kidney measures 13.3 cm x 5.4 cm while the left kidney measures 13.6 cm x 6.0 cm. No gross evidence of renal mass, hydronephrosis, or definite nephrolithiasis is identified. The urinary bladder appears grossly unremarkable. Spleen: The spleen is normal in size measuring 11.9 cm in length. No definite focal splenic lesion is identified. Ascites: No abdominal ascites is identified. IMPRESSION 1. Limited evaluation of the abdomen due to patient's body habitus and gas filled bowel loops. 2. Moderate hepatomegaly with diffuse hepatic steatosis. 3. No definite sonographic evidence of cholelithiasis, cholecystitis or biliary tract disease. Finalized by Sumeet Galloway M.D. on 12/25/2015 2:46 PM. Dictated by Sumeet Galloway M.D. on 12/25/2015 2:38 PM. Performing Organization Address City/State/Zipcode Phone Number [facility] documented in this encounter Visit Diagnoses Diagnosis Right upper quadrant abdominal pain - Primary Abdominal pain, right upper quadrant documented in this encounter
--- OUTSIDE RECORDS SUMMARY | 2019-04-10 20:14 | XMS REPORT | Clinical Summary ---
Author Author [facility] Organization [facility] Address Unknown Phone Unavailable Care Team Providers Care Tele Rn Name Role Phone Francisco Lui MD Unavailable Uche Esparza MD Unavailable Source Comments Some departments are not documenting in the electronic medical record. If you d o not see the information that you expected, contact Release of Information in [facility] [employer] Information Management department at [phone] for further assistan ce in locating additional records.[facility] Allergies Comments Active Allergy Reactions Severity [...] travel history available. Last Filed Vital Signs Reading Time Taken Comments Vital Sign 122/68 12/06/2015 10:10 AM VERIFIER OPERATOR Blood Pressure 81 12/06/2015 10:10 AM VERIFIER OPERATOR Pulse 36.4 C (97.6 F) 12/06/2015 10:10 AM VERIFIER OPERATOR Temperature 17 12/06/2015 10:10 AM VERIFIER OPERATOR Respiratory Rate - - Oxygen Saturation - - Inhaled Oxygen Concentration 206.4 kg (455 lb 1.6 oz) 12/06/2015 10:10 AM VERIFIER OPERATOR Weight 182.9 cm (6') 12/06/2015 10:10 AM VERIFIER OPERATOR Height 61.72 12/06/2015 10:10 AM VERIFIER OPERATOR Body Mass Index Plan of Treatment Health Maintenance Due Date Last Done Comments PHYSICAL (COMPREHENSIVE) 1997 EXAM HIV SCREENING 2005 DTAP/TDAP VACCINES ( - 2008 Tdap) INFLUENZA VACCINE 07/27/2019 Results Not on filefrom Last 3 Months Insurance Type Payer Benefit Subscriber ID Effective Phone Address Plan / Dates Group PPO CIGNA CIGNA xxxxxxxxxxxx 2011-P NETWORK resent PPO - [id number] Advance Directives Patient Scanner Operator Explanation Type Date Recorded Advance 12/06/2015 10:53 AM Directive/DPOA
--- OUTSIDE RECORDS SUMMARY | 2019-04-10 20:14 | XMS REPORT ---
Author Author MARQUISE LUCERO Organization [facility] Address [address] [place] [address] Care Team Providers Care Senior Game Advisor Name Role Phone MARQUISE LUCERO Unavailable PROBLEMS Type Condition ICD9-CM Code [id number] Code Onset Dates Condition Status SNOMED Code Problem Vasovagal episode R55 Oct, 0 248595073 Problem Acute suppurative otitis media of right ear without spontaneous rupture of tympanic membrane H66.001 Dec, 0 98858579 Problem Acute recurrent maxillary sinusitis 461.0 Dec, 0 39563358 Problem Essential hypertension, benign I10 Oct, 0 9641265 Problem Chronic gastritis K29.50 February, 0 7150495 Problem Anxiety state F41.1 Dec, 0 581272643 Problem Acute costochondritis M94.0 Dec, 0 51290110 Problem Anxiety state 300.00 Dec, 0 463278112 Problem Acute suppurative otitis media of right ear without spontaneous rupture of tympanic membrane 382.00 Dec, 0 85309049 Problem Renal insufficiency 593.9 February, 0 928120922 Problem Cyclical vomiting with nausea G43.A0 Jun, 0 Problem Nonintractable episodic headache R51 Sep, 0 66696489 Problem Nonintractable episodic headache 784.0 Sep, 0 92289934 Problem Acute recurrent maxillary sinusitis J01.01 Dec, 0 68416736 Problem Sinusitis J32.9 Apr, 0 98613037 Problem Chronic gastritis 535.10 February, 0 0582051 Problem Problems related to lack of physical exercise Z72.3 February, 0 65740990 Problem Somatization disorder F45.0 Apr, 0 592768925 Problem Right wrist pain 719.43 0 09977706 Problem Exercise-induced cramps of lower extremity R25.2 February, 0 71758734 Problem Morbid obesity due to excess calories 278.01 February, 0 543799005 Problem Exercise-induced cramps of lower extremity 729.82 February, 0 398760964 Problem Chest pain 786.50 February, 0 59605680 Problem Cyclical vomiting with nausea 536.2 Jun, 0 106761590 Problem Acute costochondritis 733.6 Dec, 0 27933749 Problem Vasovagal episode 780.2 Oct, 0 496923373 Problem Sinusitis 473.9 Apr, 0 20577293 Problem Abdominal pain 789.00 Apr, 0 16290897 Problem Problems related to lack of physical exercise V69.0 February, 0 29138180 Problem Anxiety F41.9 Active 89618152 Problem Chest pain R07.9 February, 0 84386839 Problem Essential hypertension I10 Active 13587448 Problem Right wrist pain M25.531 0 28981532 Problem Morbid obesity due to excess calories E66.01 February, 0 679674629 Problem Essential hypertension, benign 401.1 Oct, 0 0924956 Problem Somatization disorder 300.81 Apr, 0 265561577 Problem Renal insufficiency N28.9 February, 0 179375625 Problem Abdominal pain R10.9 Apr, 0 54556308 ALLERGIES Substance Reaction Event Type Date Status Penicillin G Potassium Unknown Drug Allergy Dec, Active ENCOUNTERS Encounter Location Date Diagnosis [address] [address] Dec, Anxiety F41.[address] [address] Dec, [address] [address] Dec, Morbid obesity E66.01 ; Left arm numbness R20.0 and Acute non-recurrent maxillary sinusitis J01.[address] [address] Dec, Acute non-recurrent maxillary sinusitis J01.00 ; Morbid obesity E66.01 and Essential hypertension I10 [address] [address] Nov, [address] [place] [address] Nov, Anxiety F41.9 and Essential hypertension I10 [facility] [address] [place] [address] Sep, [facility] [address] [address] Sep, [facility] [id number] [address] Sep, [facility] [id number] [address] Sep, [facility] [id number] [place] [address] Aug, [facility] [id number] [address] Aug, [facility] [id number] [address] Aug, [facility] [id number] [address] Aug, [facility] [address], [place] [address] Jul, [facility] [address], [place] [address] Jul, IMMUNIZATIONS No Known Immunizations SOCIAL HISTORY Never Assessed REASON FOR VISIT Cold Symptoms x1 wk PLAN OF CARE Activity Details Follow Up prn Reason: VITAL SIGNS Height 6ft in 2018-12-29 Weight 365lb lbs 2018-12-29 BMI 49.5 kg/m2 2018-12-29 Blood pressure systolic 146 mmHg 2018-12-29 Blood pressure diastolic 90 mmHg 2018-12-29 MEDICATIONS Medication Instructions Dosage Frequency Start Date End Date Duration Status Lisinopril 20 MG Orally Once a day 1 tablet 24h Nov, 30 day(s) Active Carvedilol 12.5 MG Take 1 Tablet (12.5 mg) by mouth 2 times daily. Active Zithromax Z-Srinivasa 250 MG Orally Once a day 2 tablets on the first day, then 1 tablet daily for 4 days 24h Dec, 5 day(s) Active Lexapro 20 MG Orally Once a day 1 tablet 24h 30 day(s) Active Xanax 1 MG Orally Twice a day 1 tablet 12h Nov, 14 days Active RESULTS No Results PROCEDURES No Known procedures INSTRUCTIONS MEDICATIONS ADMINISTERED No Known Medications MEDICAL (GENERAL) HISTORY Type Description Date Medical History Anxiety Medical History Hypertension Surgical History Tonsilectomy Surgical History Tubes in Ears Surgical History Colonoscopy x5
--- OUTSIDE RECORDS SUMMARY | 2019-04-10 20:14 | XMS REPORT | Encounter Summary ---
Author Author [facility] Organization [facility] Address Unknown Phone Unavailable Care Team Providers Care Hazmat Cdl Driver Name Role Phone Francisco Lui MD Unavailable Encounter Details Care Team Description Date Type Department Francisco Lui MD [address] [facility] [address]vl [address] [place] [address] [phone] 12/25/2015 [facility] [address] [address] Social History Date Tobacco Use Types Packs/Day [...] history available. documented as of this encounter Medications at Time of Discharge Start Date End Date Medication Sig Dispensed Refills ALPRAZolam (XANAX) 1 mg Take 1 mg by 0 tablet mouth at bedtime as needed. carvedilol (COREG) 25 mg Take 25 mg by 0 tablet mouth twice daily with meals. fluticasone (FLONASE) 50 Apply 2 0 mcg/actuation nasal spray Sprays to each nostril as directed daily. HYDROcodone/acetaminophen Take 1 Tab by 0 (NORCO; VICODIN) 5-325 mg mouth every 4 tablet hours as needed for Pain lisinopril/hydrochlorothi Take 1 Tab by 0 azide (ZESTORETIC) 20/25 mouth daily. tablet 1 Tab 12/06/2015 nortriptyline (PAMELOR) Take 1 Cap by 30 Cap 3 25 mg capsuleIndications: mouth at Right upper quadrant bedtime abdominal pain daily. ondansetron (ZOFRAN ODT) Take 4 mg by 0 4 mg rapid dissolve mouth every 8 tablet hours as needed for Nausea. pantoprazole DR Take 40 mg by 0 (PROTONIX) 40 mg tablet mouth daily. promethazine (PHENERGAN) Take 25 mg by 0 25 mg tablet mouth every 6 hours as needed for Nausea. sucralfate (CARAFATE) 1 Take 1 g by 0 gram tablet mouth every 6 hours. zolpidem (AMBIEN) 10 mg Take 10 mg by 0 tablet mouth at bedtime as needed for Sleep. 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 Limited evaluation [...] Interface, Radiant Results - 12/25/2015 2:49 PM SOFT CRAB SHEDDER Abdominal ultrasound ABDOMINAL ULTRASOUND Clinical Indication: Male, [...] Diagnoses Diagnosis Right upper quadrant abdominal pain Abdominal pain, right upper quadrant documented in this encounter
--- OUTSIDE RECORDS SUMMARY | 2019-04-10 20:15 | XMS REPORT | Continuity of Care Document ---
Author Organization Unknown Address Unknown Allergies Active Description Code Type Severity Reaction Onset Reported/Identified Relationship to Patient Clinical Status Yes Penicillins [id number] Drug Allergy Unknown N/A 11/19/2015 Yes morphine [id number] Drug Allergy Unknown N/A 01/13/2019 Medications There is no data. Problems Date Dx Coded Attending Type Code Diagnosis Diagnosed By 11/19/2015 CARLOS ALBERTO BENJAMIN MD Ot K58.9 IRRITABLE BOWEL SYNDROME WITHOUT DIARRHE 11/19/2015 CARLOS ALBERTO BENJAMIN MD Ot K59.00 CONSTIPATION, UNSPECIFIED 11/19/2015 CARLOS ALBERTO BENJAMIN MD Ot R10.33 PERIUMBILICAL PAIN 12/27/2018 WILLIE VALDERRAMA DO Ot F41.9 ANXIETY DISORDER, UNSPECIFIED 12/27/2018 WILLIE VALDERRAMA DO Ot I10 ESSENTIAL (PRIMARY) HYPERTENSION 12/27/2018 WILLIE VALDERRAMA DO Ot K21.9 GASTRO-ESOPHAGEAL REFLUX DISEASE WITHOUT 12/27/2018 VALDERRAMA WILLIE PELAYO Ot K58.9 IRRITABLE BOWEL SYNDROME WITHOUT DIARRHE 12/27/2018 WILLIE VALDERRAMA DO Ot R07.81 PLEURODYNIA 12/27/2018 WILLIE VALDERRAMA DO Ot Z88.0 ALLERGY STATUS TO PENICILLIN 12/27/2018 WILLIE VALDERRAMA DO Ot Z90.89 ACQUIRED ABSENCE OF OTHER ORGANS 12/29/2018 WILLIE VALDERRAMA DO Ot F41.9 ANXIETY DISORDER, UNSPECIFIED 12/29/2018 EDMOND VALDERRAMA DOIAN L Ot I10 ESSENTIAL (PRIMARY) HYPERTENSION 12/29/2018 WILLIE VALDERRAMA DO Ot K21.9 GASTRO-ESOPHAGEAL REFLUX DISEASE WITHOUT 12/29/2018 VALDERRAMA WILLIE PELAYO Ot K58.9 IRRITABLE BOWEL SYNDROME WITHOUT DIARRHE 12/29/2018 WILLIE VALDERRAMA DO Ot R07.81 PLEURODYNIA 12/29/2018 WILLIE VALDERRAMA DO Ot Z88.0 ALLERGY STATUS TO PENICILLIN 12/29/2018 VALDERRAMA DO WILLIE Serafin Ot Z90.89 ACQUIRED ABSENCE OF OTHER ORGANS 01/13/2019 ZOLTAN FRAZIER MD Ot F32.9 MAJOR DEPRESSIVE DISORDER, SINGLE EPISOD 01/13/2019 ZOLTAN FRAZIER MD Ot F41.9 ANXIETY DISORDER, UNSPECIFIED 01/13/2019 ZOLTAN FRAZIER MD Ot I10 ESSENTIAL (PRIMARY) HYPERTENSION 01/13/2019 ZOLTAN FRAZIER MD Ot K21.9 GASTRO-ESOPHAGEAL REFLUX DISEASE WITHOUT 01/13/2019 ZOLTAN FRAZIER MD J Ot K58.9 IRRITABLE BOWEL SYNDROME WITHOUT DIARRHE 01/13/2019 ZOLTAN FRAZIER MD Ot M79.602 PAIN IN LEFT ARM 01/13/2019 ZOLTAN FRAZIER MD Ot R07.89 OTHER CHEST PAIN 01/13/2019 ZOLTAN FRAZIER MD Ot R20.2 PARESTHESIA OF SKIN 01/13/2019 ZOLTAN FRAZIER MD Ot Z87.891 PERSONAL HISTORY OF NICOTINE DEPENDENCE 01/13/2019 ZOLTAN FRAZIER MD Ot Z88.0 ALLERGY STATUS TO PENICILLIN 01/13/2019 ZOLTAN FRAZIER MD Ot Z88.5 ALLERGY STATUS TO NARCOTIC AGENT STATUS 01/13/2019 ZOLTAN FRAZIER MD Ot Z90.89 ACQUIRED ABSENCE OF OTHER ORGANS 01/16/2019 ZOLTAN FRAZIER MD Ot F32.9 MAJOR DEPRESSIVE DISORDER, SINGLE EPISOD 01/16/2019 ZOLTAN FRAZIER MD Ot F41.9 ANXIETY DISORDER, UNSPECIFIED 01/16/2019 ZOLTAN FRAZIER MD Ot I10 ESSENTIAL (PRIMARY) HYPERTENSION 01/16/2019 ZOLTAN FRAZIER MD Ot K21.9 GASTRO-ESOPHAGEAL REFLUX DISEASE WITHOUT 01/16/2019 ZOLTAN FRAZIER MD Ot K58.9 IRRITABLE BOWEL SYNDROME WITHOUT DIARRHE 01/16/2019 ZOLTAN FRAZIER MD Ot M79.602 PAIN IN LEFT ARM 01/16/2019 ZOLTAN FRAZIER MD Ot R07.89 OTHER CHEST PAIN 01/16/2019 ZOLTAN FRAZIER MD Ot R20.2 PARESTHESIA OF SKIN 01/16/2019 ZOLTAN FRAZIER MD Ot Z87.891 PERSONAL HISTORY OF NICOTINE DEPENDENCE 01/16/2019 ZOLTAN FRAZIER MD Ot Z88.0 ALLERGY STATUS TO PENICILLIN 01/16/2019 ZOLTAN FRAZIER MD Ot Z88.5 ALLERGY STATUS TO NARCOTIC AGENT STATUS 01/16/2019 ZOLTAN FRAZIER MD Ot Z90.89 ACQUIRED ABSENCE OF OTHER ORGANS 03/26/2019 ZOLTAN FRAZIER MD Ot F17.210 NICOTINE DEPENDENCE, CIGARETTES, UNCOMPL 03/26/2019 ZOLTAN FRAZIER MD Ot F41.9 ANXIETY DISORDER, UNSPECIFIED 03/26/2019 ZOLTAN FRAZIER MD Ot G43.909 MIGRAINE, UNSP, NOT INTRACTABLE, WITHOUT 03/26/2019 ZOLTAN FRAZIER MD Ot I10 ESSENTIAL (PRIMARY) HYPERTENSION 03/26/2019 ZOLTAN FRAZIER MD Ot K21.9 GASTRO-ESOPHAGEAL REFLUX DISEASE WITHOUT 03/26/2019 ZOLTAN FRAZIER MD Ot K58.9 IRRITABLE BOWEL SYNDROME WITHOUT DIARRHE 03/26/2019 ZOLTAN FRAZIER MD Ot R51 HEADACHE 03/26/2019 ZOLTAN FRAZIER MD Ot Z87.19 PERSONAL HISTORY OF OTHER DISEASES OF TH 03/26/2019 ZOLTAN FRAZIER MD Ot Z87.442 PERSONAL HISTORY OF URINARY CALCULI 03/26/2019 ZOLTAN FRAZIER MD Ot Z88.0 ALLERGY STATUS TO PENICILLIN 03/26/2019 ZOLTAN FRAZIER MD Ot Z88.5 ALLERGY STATUS TO NARCOTIC AGENT STATUS 03/26/2019 ZOLTAN FRAZIER MD Ot Z90.89 ACQUIRED ABSENCE OF OTHER ORGANS 03/26/2019 ZOLTAN FRAZIER MD Ot Z98.890 OTHER SPECIFIED POSTPROCEDURAL STATES Procedures There is no data. Results Test [...] 12/27/18 07:25 TROPONIN T < 6 <=15 Complete blood count (CBC) with automated white blood cell (WBC) differential - 01/13/19 05:32 Blood leukocytes automated count (number/volume) 6.4 10*3/uL 4.3-11.0 Blood erythrocytes automated count (number/volume) 5.52 10*6/uL 4.35-5.85 Venous blood hemoglobin measurement (mass/volume) 14.9 g/dL 13.3-17.7 Blood hematocrit (volume fraction) 45 % 40-54 Automated erythrocyte mean corpuscular volume 82 [foz_us] 80-99 Automated erythrocyte mean corpuscular hemoglobin (mass per erythrocyte) 27 pg 25-34 Automated erythrocyte mean corpuscular hemoglobin concentration measurement (mass/volume) 33 g/dL 32-36 Automated erythrocyte distribution width ratio 13.7 % 10.0- 14.5 Automated blood platelet count (count/volume) 136 10*3/uL 130-400 Automated blood platelet mean volume measurement 12.4 [foz_us] 7.4-10.4 Automated blood neutrophils/100 leukocytes 50 % 42-75 Automated blood lymphocytes/100 leukocytes 40 % 12-44 Blood monocytes/100 leukocytes 7 % 0-12 Automated blood eosinophils/100 leukocytes 2 % 0-10 Automated blood basophils/100 leukocytes 1 % 0-10 Blood neutrophils automated count (number/volume) 3.2 10*3 1.8-7.8 Blood lymphocytes automated count (number/volume) 2.6 10*3 1.0-4.0 Blood monocytes automated count (number/volume) 0.4 10*3 0.0- 1.0 Automated eosinophil count 0.1 10*3/uL 0.0-0.3 Automated blood basophil count (count/volume) 0.0 10*3/uL 0.0-0.1 PT panel in platelet poor plasma by coagulation assay - 01/13/19 05:32 Prothrombin time (PT) in platelet poor plasma by coagulation assay 13.8 s 12.2-14.7 INR in platelet poor plasma or blood by coagulation assay 1.1 0.8-1.4 Activated partial thromboplastin time (aPTT) in platelet poor plasma bycoagulation assay - 01/13/19 05:32 Activated partial thromboplastin time (aPTT) in platelet poor plasma bycoagulation assay 31 s 24-35 Comprehensive metabolic panel - 01/13/19 05:32 Serum or plasma sodium measurement (moles/volume) 140 mmol/L 135-145 Serum or plasma potassium measurement (moles/volume) 3.8 mmol/L 3.6-5.0 Serum or plasma chloride measurement (moles/volume) 101 mmol/L 98-107 Carbon dioxide 20 mmol/L 21-32 Serum or plasma anion gap determination (moles/volume) 19 mmol/L 5-14 Serum or plasma urea nitrogen measurement (mass/volume) 16 mg/dL 7-18 Serum or plasma creatinine measurement (mass/volume) 0.90 mg/dL 0.60-1.30 Serum or plasma urea nitrogen/creatinine mass ratio 18 NRG Serum or plasma creatinine measurement with calculation of estimated glomerular filtration rate > NRG Serum or plasma glucose measurement (mass/volume) 94 mg/dL 70-105 Serum or plasma calcium measurement (mass/volume) 9.5 mg/dL 8.5-10.1 Serum or plasma total bilirubin measurement (mass/volume) 0.6 mg/dL 0.1-1.0 Serum or plasma alkaline phosphatase measurement (enzymatic activity/volume) 90 U/L 40-136 Serum or plasma aspartate aminotransferase measurement (enzymatic activity/volume) 16 U/L 5-34 Serum or plasma alanine aminotransferase measurement (enzymatic activity/volume) 24 U/L 0-55 Serum or plasma protein measurement (mass/volume) 7.0 g/dL 6.4-8.2 Serum or plasma albumin measurement (mass/volume) 4.1 g/dL 3.2-4.5 CALCIUM CORRECTED 9.4 mg/dL 8.5-10.1 Magnesium - 01/13/19 05:32 Magnesium 1.9 mg/dL 1.8-2.4 TROPONIN T - 01/13/19 05:32 TROPONIN T 6 % <=15 PROBNP FS - 01/13/19 05:32 PROBNP FS 19.0 pg/mL <75.0 Encounters ACCT No. Visit Date/Time Discharge Status Pt. Type Provider Facility Loc./Unit Complaint [id number] 03/25/2019 14:30:00 03/25/2019 23:59:59 [id number] 03/21/2019 23:57:00 03/22/2019 00:43:00 DIS Outpatient ZOLTAN FRAZIER MD [facility] ER FS HEADACHE [id number] 01/13/2019 05:20:00 01/13/2019 07:05:00 DIS Emergency ZOLTAN FRAZIER MD [facility] ER FS CHEST PAIN, WOKE UP LT SIDE WAS NUMB [id number] 12/27/2018 06:58:00 12/27/2018 08:15:00 DIS Emergency WILLIE VALDERRAMA DO [facility] ER FS CHEST PAIN [id number] 11/19/2015 12:19:00 11/19/2015 14:41:00 DIS Emergency CARLOS ALBERTO BENJAMIN MD [facility] ER ABD PAIN/NAUSEA
[2019-04-10] MEDS ORDERED: DEXAMETHASONE 10 MG/ML (DECADRON) 1 ML VIAL IM STA (20:17)
[2019-04-10] MEDS ORDERED: methylPREDNISolone 40 MG/ML (DEPO MEDROL) VIAL IM STA (20:17)
--- NOTE | 2019-04-10 20:25 | ED Integumentary General ---
General Stated Complaint: INSECT BITE Source: patient History of Present Illness Date Seen by Provider: Apr 10, 2019 Time Seen by Provider: 20:11 Initial Comments 28 yo M presenting after having a wasp fly into his vehicle and sting his right calf. he has pain from the sting but it also started to swell and itch. He has mild shortness of breath. He denies any difficulty to swallow. His sister is highly allergic to wasps. he does not know of any prior wasp stings in the past. 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 He has not taken anything for the sting or itching. Allergies and Home Medications Allergies Coded Allergies: Penicillins (Unverified Allergy, Unknown, 11/19/15) morphine (Verified Allergy, Unknown, 01/13/19) Home Medications Alprazolam 1 Mg Tablet, 1 MG PO DAILY, (Reported) Carvedilol 12.5 Mg Tablet, BID, (Reported) Escitalopram Oxalate 20 Mg Tablet, 20 MG PO DAILY, (Reported) Ibuprofen 800 Mg Tablet, 800 MG PO Q8H PRN for PAIN Prescribed by: WILLIE VALDERRAMA on 12/27/18 0803 Lisinopril 20 Mg Tablet, 20 MG PO DAILY, (Reported) Patient Home Medication List Home Medication List Reviewed: Yes Review of Systems Review of Systems Constitutional: No chills, No fever EENTM: no symptoms reported Respiratory: No cough, No dyspnea on exertion; short of breath (mild) Cardiovascular: no symptoms reported Gastrointestinal: no symptoms reported Genitourinary: no symptoms reported Musculoskeletal: no symptoms reported Skin: see HPI Psychiatric/Neurological: No Symptoms Reported Past Sxmpgtm-Scylbd-Zplwtf Hx Past Med/Social Hx: Reviewed Nursing Past Med/Soc Hx Patient Social History Type Used: Cigarettes 2nd Hand Smoke Exposure: Yes Recent Foreign Travel: No Contact w/Someone Who Travel: No Recent Hopitalizations: No Seasonal Allergies Seasonal Allergies: No Past Medical History Surgeries: Yes Adenoidectomy, Tonsillectomy Respiratory: No Cardiac: Yes (chest pain, essential hypertension, acute costochondritis) Hypertension Neurological: Yes (vasovagal episode) Reproductive Disorders: No Sexually Transmitted Disease: No Genitourinary: Yes (renal insufficiency) Kidney Stones Gastrointestinal: Yes (chronic gastritis, abd pain, cyclical vomiting w/ nausea) Gastroesophageal Reflux, Irritable Bowel Musculoskeletal: Yes (right wrist pain, exercised-induced cramps of lower extremity) Endocrine: No HEENT: Yes (acute recurrent maxillary sinusitis, acute suppurative otitis media of rt) Cancer: No Psychosocial: Yes Anxiety Integumentary: No Blood Disorders: No Physical Exam Vital Signs Vital Signs - First Documented 04/10/19 20:28 Temp 97.7 Pulse 89 Resp 18 B/P (MAP) 185/99 (127) Pulse Ox 99 O2 Delivery Room Air Capillary Refill : General Appearance: WD/WN, no apparent distress HEENT: pharynx normal Cardiovascular: normal peripheral pulses, regular rate, rhythm Respiratory: lungs clear, normal breath sounds, no respiratory distress, no accessory muscle use; No stridor, No wheezing Extremities: normal range of motion, normal inspection Neurologic/Psychiatric: alert, oriented x 3 Skin: warm/dry, rash (erythema with hives to right medial calf) Progress/Results/Core Measures Results/Orders My Orders Orders - LOLY EDWARDS MD Dexamethasone Injection (Decadron Inject (04/10/19 20:17) Methylprednisolone Acetate Inj (Depo-Med (04/10/19 20:17) Vital Signs/I&O 04/10/19 04/10/19 20:28 20:36 Temp 97.7 Pulse 89 89 Resp 18 18 B/P (MAP) 185/99 (127) 185/99 (127) Pulse Ox 99 99 O2 Delivery Room Air Progress Progress Note : Progress Note since he drove himself will give steroid here and then have him take benadryl or antihistamine at home. Departure Impression Primary Impression: Accidental wasp sting Additional Impression: Allergic reaction to insect sting Qualified Codes: T63.481A - Toxic effect of venom of other arthropod, accidental (unintentional), initial encounter Disposition: 01 HOME, SELF-CARE Condition: Stable Departure-Patient Inst. Decision time for Depature: 20:23 Referrals: MARQUISE LUCERO MD (PCP/Family) Primary Care Physician Patient Instructions: Insect Bites and Stings (DC), Insect Allergy Add. Discharge Instructions: Take 25 to 50 mg of Benadryl (Diphenhydramine) every 4 hours as needed for itching and rash to help with your swelling and itching on your calf. The steroid shot from today will help over the next 5-7 days. Check with clinic for continued concerns/problems LOLY EDWARDS MD Apr 10, 2019 20:25
[2019-04-10 20:36] VITALS: BP 185/99
== END 2019-04-10 20:39 | disposition home or self-care (01) ==
LOC: EDUNIT# 20:08 → ER FS 20:10
DX: T63.481A Toxic effect of venom of other arthropod, accidental (unintentional), initial encounter (principal); I10 Essential (primary) hypertension; K21.9 Gastro-esophageal reflux disease without esophagitis; K58.9 Irritable bowel syndrome, unspecified; F41.9 Anxiety disorder, unspecified; Z87.19 Personal history of other diseases of the digestive system; Z87.442 Personal history of urinary calculi; Z88.0 Allergy status to penicillin; Z88.5 Allergy status to narcotic agent; Z77.22 Contact with and (suspected) exposure to environmental tobacco smoke (acute) (chronic); Z90.89 Acquired absence of other organs
CPT/HCPCS: 96372; 99284

== ENCOUNTER 2019-04-11 08:59 | Emergency (ER) | payer SELFPAY ==
[~2019-04-11] VITALS: Ht 182.9 cm; Wt 163.3 kg
--- NOTE | 2019-04-11 09:34 | ED General ---
General Chief Complaint: General Problems/Pain Stated Complaint: PT GOT A SHOT HERE LAST NIGHT - HIGH HR/PAIN SINCE Nursing Triage Note: Was here last night after being stung by a wasp and got a steroid shot. States his heart rate has been elevated and he is having a pain under his left arm on his side. Has been nauseous and vomited once. HR was 155 after vomiting. Nursing Sepsis Screen: No Definite Risk Source of Information: Patient Exam Limitations: No Limitations History of Present Illness Date Seen by Provider: Apr 11, 2019 Time Seen by Provider: 09:29 Initial Comments The patient is a 28-year-old white male who presents with complaints of rapid heartbeat. He was here last evening after suffering a wasp sting on his right calf. He was given Decadron and Solu-Medrol. He was advised to take Benadryl 50 mg every 4 hours as needed be by mouth. He reports that he slept quite well until about 0430 this morning. He felt quite anxious. He ultimately took his pulse and found it to be 156. It is continued to be relatively rapid. He is hypertensive and takes Coreg 12.5 mg twice daily. He had taken one last night and again this morning. He also reports that he has suffered from anxiety in the past. He stopped his benzos about 2 weeks ago. Timing/Duration: 4-6 Hours Severity: Moderate Allergies and Home Medications Allergies Coded Allergies: Penicillins (Unverified Allergy, Unknown, 11/19/15) morphine (Verified Allergy, Unknown, 01/13/19) Home Medications Alprazolam 1 Mg Tablet, 1 MG PO DAILY, (Reported) Carvedilol 12.5 Mg Tablet, BID, (Reported) Escitalopram Oxalate 20 Mg Tablet, 20 MG PO DAILY, (Reported) Ibuprofen 800 Mg Tablet, 800 MG PO Q8H PRN for PAIN Prescribed by: WILLIE VALDERRAMA on 12/27/18 0803 Lisinopril 20 Mg Tablet, 20 MG PO DAILY, (Reported) Patient Home Medication List Home Medication List Reviewed: Yes Review of Systems Review of Systems Constitutional: see HPI EENTM: no symptoms reported Respiratory: no symptoms reported Cardiovascular: see HPI Gastrointestinal: no symptoms reported Genitourinary: no symptoms reported Musculoskeletal: no symptoms reported Skin: no symptoms reported Psychiatric/Neurological: No Symptoms Reported Hematologic/Lymphatic: No Symptoms Reported Immunological/Allergic: no symptoms reported Past Zcojyzc-Wimlpn-Gtljcu Hx Patient Social History Alcohol Use: Occasionally Uses Recreational Drug Use: No Smoking Status: Never a Smoker Type Used: Cigarettes 2nd Hand Smoke Exposure: Yes Recent Foreign Travel: No Contact w/Someone Who Travel: No Recent Infectious Disease Expo: No Recent Hopitalizations: No Physical Abuse: No Sexual Abuse: No Mistreated: No Fear: No Seasonal Allergies Seasonal Allergies: No Past Medical History Surgeries: Yes Adenoidectomy, Tonsillectomy Respiratory: No Cardiac: Yes (chest pain, essential hypertension, acute costochondritis) Hypertension Neurological: Yes (vasovagal episode) Reproductive Disorders: No Sexually Transmitted Disease: No Genitourinary: Yes (renal insufficiency) Kidney Stones Gastrointestinal: Yes (chronic gastritis, abd pain, cyclical vomiting w/ nausea) Gastroesophageal Reflux, Irritable Bowel Musculoskeletal: Yes (right wrist pain, exercised-induced cramps of lower extremity) Endocrine: No HEENT: Yes (acute recurrent maxillary sinusitis, acute suppurative otitis media of rt) Cancer: No Psychosocial: Yes Anxiety Integumentary: No Blood Disorders: No Physical Exam Vital Signs Vital Signs - First Documented 04/11/19 09:03 Temp 97.5 Pulse 112 Resp 18 B/P (MAP) 159/98 (118) Pulse Ox 98 Capillary Refill : Less Than 3 Seconds Height, Weight, BMI Height: 6'0" Weight: 360lbs. 0oz. 163.643176tv; BMI Method:Stated General Appearance: Mild Distress Eyes: Bilateral Eye Normal Inspection HEENT: Normal ENT Inspection Neck: Full Range of Motion, Normal Inspection, Non Tender, Supple, Carotid Bruit Respiratory: Chest Non Tender, Lungs Clear, Normal Breath Sounds Cardiovascular: Other (rate 100-110) Gastrointestinal: Normal Bowel Sounds Back: Normal Inspection Extremity: Normal Capillary Refill Neurologic/Psychiatric: Alert, Oriented x3, No Motor/Sensory Deficits, Normal Mood/Affect Skin: Normal Color, Warm/Dry Lymphatic: No Adenopathy Progress/Results/Core Measures Suspected Sepsis Recent Fever Within 48 Hours: No Infection Criteria Present: None New/Unexplained Altered Menta: No Sepsis Screen: No Definite Risk SIRS Temperature:97.5 Pulse: 112 Respiratory Rate: 18 Blood Pressure 159 /98 Mean: 118 Results/Orders My Orders Orders - CARLOS ALBERTO BENJAMIN MD Ekg Tracing (04/11/19 09:28) Vital Signs/I&O 04/11/19 09:03 Temp 97.5 Pulse 112 Resp 18 B/P (MAP) 159/98 (118) Pulse Ox 98 Capillary Refill : Less Than 3 Seconds Blood Pressure Mean: 118 Departure Communication (Admissions) Cardiogram interpreted by me shows a sinus tachycardia with a rate of 107. Impression Primary Impression: sinus tachycardia Disposition: HOME, SELF-CARE Condition: Stable/Unchanged Departure-Patient Inst. Decision time for Depature: 09:34 Referrals: MARQUISE LUCERO MD (PCP/Family) Primary Care Physician Add. Discharge Instructions: All discharge instructions reviewed with patient and/or family. Voiced understanding. You have a very normal cardiogram which shows what we call to be a sinus tachycardia. By definition anything greater than 100 is called tachycardia. This is not considered to be harmful. If this persists see your provider as the carvedilol that you take is useful in slowing the pulse rate and you may need an increase in dose. CARLOS ALBERTO BENJAMIN MD Apr 11, 2019 09:34
[2019-04-11 09:41] VITALS: BP 159/98
== END 2019-04-11 09:41 | disposition home or self-care (01) ==
LOC: EDUNIT# 08:59 → ER FS 09:01
DX: R00.0 Tachycardia, unspecified (principal); F41.9 Anxiety disorder, unspecified; I10 Essential (primary) hypertension; K21.9 Gastro-esophageal reflux disease without esophagitis; K58.9 Irritable bowel syndrome, unspecified; Z87.19 Personal history of other diseases of the digestive system; Z87.442 Personal history of urinary calculi; Z88.0 Allergy status to penicillin; Z88.5 Allergy status to narcotic agent; Z77.22 Contact with and (suspected) exposure to environmental tobacco smoke (acute) (chronic); Z90.89 Acquired absence of other organs

== ENCOUNTER 2020-07-15 06:13 | Emergency (ER) | payer SELFPAY ==
[~2020-07-15] VITALS: Ht 182.9 cm; Wt 163.6 kg
[~2020-07-15 06:13] MED LIST changes: -LISI1TAB10; +LISI1TAB26; -PANT40TA3; +PANT40TA52; -TRAM50TA2 PO; +TRM50T PO
[2020-07-15] MEDS ORDERED: ORPHENADRINE 60 MG/2 ML (NORFLEX) AMP (ED ONLY) IM STA (06:27)
--- NOTE | 2020-07-15 06:27 | ED Chest Pain ---
General Stated Complaint: LEFT SIDE CHEST PAIN Source: patient Exam Limitations: no limitations History of Present Illness Date Seen by Provider: Jul 15, 2020 Time Seen by Provider: 06:22 Initial Comments 29-year-old male presents with left-sided pain in his chest wall. Reports been going on for about an hour and a half. He tried some Tylenol with minimal relief. Pain gets worse with movement or resistance of his left arm. He does not have any shortness of breath, fevers, chills, cough, nausea, vomiting he reports the pains been constant. States that he is not supposed to take ibuprofen due to his kidneys. Allergies and Home Medications Allergies Coded Allergies: Penicillins (Unverified Allergy, Unknown, 11/19/15) morphine (Verified Allergy, Unknown, 01/13/19) Home Medications Alprazolam 1 Mg Tablet, 1 MG PO DAILY, (Reported) Carvedilol 12.5 Mg Tablet, BID, (Reported) Escitalopram Oxalate 20 Mg Tablet, 20 MG PO DAILY, (Reported) Ibuprofen 800 Mg Tablet, 800 MG PO Q8H PRN for PAIN Prescribed by: WILLIE VALDERRAMA on 12/27/18 0803 Lisinopril 20 Mg Tablet, 20 MG PO DAILY, (Reported) Patient Home Medication List Home Medication List Reviewed: Yes Review of Systems Review of Systems Constitutional: No chills, No fever EENTM: No Symptoms Reported Respiratory: Denies Cough, Denies Shortness of Air, Denies SOA With Exertion Cardiovascular: See HPI Gastrointestinal: No Symptoms Reported; Denies Nausea, Denies Vomiting Genitourinary: No Symptoms Reported Musculoskeletal: see HPI Skin: no symptoms reported Psychiatric/Neurological: No Symptoms Reported Endocrine: No Symptoms Reported Past Qdnumwj-Cwijix-Zmzgpb Hx Past Med/Social Hx: Reviewed Nursing Past Med/Soc Hx Patient Social History Type Used: Cigarettes 2nd Hand Smoke Exposure: Yes Recent Foreign Travel: No Contact w/Someone Who Travel: No Recent Hopitalizations: No Seasonal Allergies Seasonal Allergies: No Past Medical History Surgeries: Yes Adenoidectomy, Tonsillectomy Respiratory: No Cardiac: Yes (chest pain, essential hypertension, acute costochondritis) Hypertension Neurological: Yes (vasovagal episode) Reproductive Disorders: No Sexually Transmitted Disease: No Genitourinary: Yes (renal insufficiency) Kidney Stones Gastrointestinal: Yes (chronic gastritis, abd pain, cyclical vomiting w/ nausea) Gastroesophageal Reflux, Irritable Bowel Musculoskeletal: Yes (right wrist pain, exercised-induced cramps of lower extremity) Endocrine: No HEENT: Yes (acute recurrent maxillary sinusitis, acute suppurative otitis media of rt) Cancer: No Psychosocial: Yes Anxiety Integumentary: No Blood Disorders: No Physical Exam Vital Signs Vital Signs - First Documented 07/15/20 06:20 Temp 36.0 Pulse 82 Resp 18 B/P (MAP) 183/79 (113) Pulse Ox 98 O2 Delivery Room Air Capillary Refill : Height, Weight, BMI Height: 6'0" Weight: 360lbs. 0oz. [id number]; BMI Method:Stated General Appearance: No Apparent Distress, WD/WN, Obese HEENT: Normal ENT Inspection Neck: Non Tender, Supple Respiratory: Lungs Clear, Normal Breath Sounds Cardiovascular: Regular Rate, Rhythm, No Edema, Normal Peripheral Pulses Gastrointestinal: Non Tender, Soft Extremity: Normal Capillary Refill, Other (symptoms completely reproducible with movement of left upper arm and resistance. Also reproducible with palpation to the chest wall) Neurologic/Psychiatric: Oriented x3, No Motor/Sensory Deficits, Normal Mood/Affect, creative services designer II-XII Norm as Tested Skin: Normal Color, Warm/Dry Progress/Results/Core Measures Results/Orders Lab Results Laboratory Tests Test 07/15/20 06:34 Range/Units White Blood Count 6.0 4.3-11.0 10^3/uL Red Blood Count 5.01 4.35-5.85 10^6/uL Hemoglobin 14.3 13.3-17.7 G/DL Hematocrit 43 40-54 % Mean Corpuscular Volume 85 80-99 FL Mean Corpuscular Hemoglobin 29 25-34 PG Mean Corpuscular Hemoglobin Concent 34 32-36 G/DL Red Cell Distribution Width 13.3 10.0-14.5 % Platelet Count 141 130-400 10^3/uL Mean Platelet Volume 12.2 H 7.4-10.4 FL Immature Granulocyte % (Auto) 0.0 Neutrophils (%) (Auto) 58 42-75 % Lymphocytes (%) (Auto) 32 12-44 % Monocytes (%) (Auto) 7 0-12 % Eosinophils (%) (Auto) 3 0-10 % Basophils (%) (Auto) 1 0-10 % Neutrophils # (Auto) 3.5 1.8-7.8 X 10^3 Lymphocytes # (Auto) 1.9 1.0-4.0 X 10^3 Monocytes # (Auto) 0.4 0.0-1.0 X 10^3 Eosinophils # (Auto) 0.2 0.0-0.3 10^3/uL Basophils # (Auto) 0.1 0.0-0.1 10^3/uL Immature Granulocyte # (Auto) 0.0 0.0-0.1 Percent Immature Platelet Fraction 6.4 0.0-7.6 Sodium Level 139 135-145 MMOL/L Potassium Level 4.0 3.6-5.0 MMOL/L Chloride Level 106 98-107 MMOL/L Carbon Dioxide Level 20 L 21-32 MMOL/L Anion Gap 13 5-14 MMOL/L Blood Urea Nitrogen 20 H 7-18 MG/DL Creatinine 0.85 0.60-1.30 MG/DL Estimat Glomerular Filtration Rate > 60 BUN/Creatinine Ratio 24 Glucose Level 113 H 70-105 MG/DL Calcium Level 8.8 8.5-10.1 MG/DL Corrected Calcium 8.9 8.5-10.1 MG/DL Total Bilirubin 0.4 0.1-1.0 MG/DL Aspartate Amino Transf (AST/SGOT) 40 H 5-34 U/L Alanine Aminotransferase (ALT/SGPT) 31 0-55 U/L Alkaline Phosphatase 80 40-136 U/L Troponin I < 0.30 <0.30 NG/ML Pro-B-Type Natriuretic Peptide 52.8 <75.0 PG/ML Total Protein 6.3 L 6.4-8.2 GM/DL Albumin 3.9 3.2-4.5 GM/DL Lipase 30 8-78 U/L My Orders Orders - LYNN,CLOTILDE L DO Ekg Tracing (07/15/20 06:27) Monitor-Rhythm Ecg Trace Only (07/15/20 06:27) Cbc With Automated Diff (07/15/20 06:27) Comprehensive Metabolic Panel (07/15/20 06:27) Lipase (07/15/20 06:27) Probnp Fs (07/15/20 06:27) Troponin I Fs (07/15/20 06:27) Chest 1 View Ap/Pa Only (07/15/20 06:27) Orphenadrine Inj (Ed Only) (Norflex Inje (07/15/20 06:27) Aspirin Chewable Tablet (Baby Aspirin Ch (07/15/20 06:30) Medications Given in ED Current Medications Medications Dose Ordered Sig/Adela Route Start Time Stop Time Status Last Admin Dose Admin Aspirin 324 mg ONCE ONCE PO 07/15/20 06:30 07/15/20 06:31 DC 07/15/20 06:40 324 MG Vital Signs/I&O 07/15/20 06:20 Temp 36.0 Pulse 82 Resp 18 B/P (MAP) 183/79 (113) Pulse Ox 98 O2 Delivery Room Air Initial ECG Impression Date: Jul 15, 2020 Initial ECG Impression Time: 06:26 Initial ECG Rate: 74 Initial ECG Rhythm: Normal Sinus Initial ECG Intervals: Normal Initial ECG Impression: Nonspecific Changes Comment no acute changes, nonspecific changes likely related to poor quality ekg from body habitus Departure Impression Primary Impression: Acute myofascial strain Disposition: 01 HOME, SELF-CARE Condition: Stable Departure-Patient Inst. Referrals: MARQUISE LUCERO MD (PCP/Family) Primary Care Physician Patient Instructions: Chest Pain That Is Not Caused by the Heart (DC), Muscle Strain (DC) Add. Discharge Instructions: 4% topical lidocaine with menthol as directed on package Tylenol as needed for pain Emergency department focuses on treating and ruling out life-threatening diseases. Whenever possible, a diagnosis is given. However, most patients are g iven an impression based on their history, physical exam, and workup during your brief time in the ER. Information about probable diagnosis and other educational material has been provided. Please take the time to read and understand this information. It is very important that you follow up with a physician as discussed during the visit today. Failure to adhere to your follow-up instructions may lead to severe disability, injury, or so please make sure to keep your appointments or obtain one as requested. Please keep in mind the emergency department is not designed to your primary care or "family doctor" and nonurgent issues are best evaluated by an outpatient physician CLOTILDE LYNN DO Jul 15, 2020 06:27
[2020-07-15] MEDS ORDERED: ASPIRIN 81 MG CHEW (CHILDREN'S ASA) PO ONE (06:30)
[2020-07-15 06:41] LABS: HEMATOCRIT 43 % (40-54); HEMOGLOBIN 14.3 G/DL (13.3-17.7); MEAN CORPUSCULAR HEMOGLOBIN 29 PG (25-34); MEAN CORPUSCULAR VOLUME 85 FL (80-99)
[2020-07-15 06:42] LABS: BASOPHILS # (AUTO) 0.1 10^3/uL (0.0-0.1); BASOPHILS % (AUTO) 1 % (0-10); EOSINOPHILS # (AUTO) 0.2 10^3/uL (0.0-0.3); EOSINOPHILS % (AUTO) 3 % (0-10); LYMPHOCYTES # (AUTO) 1.9 X 10^3 (1.0-4.0); LYMPHOCYTES % (AUTO) 32 % (12-44); MEAN CORPUSCULAR HGB CONC 34 G/DL (32-36); MEAN PLATELET VOLUME 12.2 FL (7.4-10.4); MONOCYTES # (AUTO) 0.4 X 10^3 (0.0-1.0); MONOCYTES % (AUTO) 7 % (0-12); NEUTROPHILS # (AUTO) 3.5 X 10^3 (1.8-7.8); NEUTROPHILS % (AUTO) 58 % (42-75); PLATELET COUNT 141 10^3/uL (130-400)
--- NOTE | 2020-07-15 06:44 | Diagnostic Imaging Report ---
CHEST 1 VIEW AP/PA ONLY Indication: Chest wall pain Comparison: 01/13/2019 Findings: No focal airspace disease in the visualized lungs. Please note that the posterior lower lobes are poorly evaluated by portable radiography. No pleural effusion or pneumothorax. Normal cardiomediastinal silhouette. Impression: 1. No acute cardiopulmonary process by portable radiography. Dictated by: Dictated on workstation # [id number]
[2020-07-15 07:11] LABS: ALANINE AMINOTRANSFERASE 31 U/L (0-55); ALKALINE PHOSPHATASE 80 U/L (40-136); BILIRUBIN,TOTAL 0.4 MG/DL (0.1-1.0); BUN/CREATININE RATIO 24; CALCIUM 8.8 MG/DL (8.5-10.1); CARBON DIOXIDE 20 MMOL/L (21-32); CHLORIDE 106 MMOL/L (98-107); CREATININE SERUM 0.85 MG/DL (0.60-1.30); GFR ESTIMATED > 60; GLUCOSE 113 MG/DL (70-105); SODIUM 139 MMOL/L (135-145)
[2020-07-15 07:12] LABS: ALBUMIN 3.9 GM/DL (3.2-4.5); LIPASE 30 U/L (8-78); TOTAL PROTEIN 6.3 GM/DL (6.4-8.2)
[2020-07-15 07:25] VITALS: BP 168/92
== END 2020-07-15 07:26 | disposition home or self-care (01) ==
LOC: EDUNIT# 06:13 → ER FS 06:17
DX: S29.011A Strain of muscle and tendon of front wall of thorax, initial encounter (principal); S46.812A Strain of other muscles, fascia and tendons at shoulder and upper arm level, left arm, initial encounter; E66.9 Obesity, unspecified; I10 Essential (primary) hypertension; F41.9 Anxiety disorder, unspecified; Z88.0 Allergy status to penicillin; Z88.5 Allergy status to narcotic agent; Z77.22 Contact with and (suspected) exposure to environmental tobacco smoke (acute) (chronic); X58.XXXA Exposure to other specified factors, initial encounter
CPT/HCPCS: 36415; 71045; 80053; 83690; 83880; 84484; 85025; 93041

== ENCOUNTER 2023-08-09 22:46 | Emergency (ER) | payer SELFPAY ==
[~2023-08-09] VITALS: Ht 182.9 cm; Wt 192.5 kg
[~2023-08-09 22:46] MED LIST changes: -LISI-552 PO; -LISI1TAB26; +LISI1TAB48; +LISI20TA26 PO
[2023-08-09 22:52] VITALS: BP 153/103
--- NOTE | 2023-08-09 23:03 | ED Lower Extremity ---
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 Pain starts about his knee the lateral aspect and goes down to his ankle. Again it is relegated to the lateral aspect of his leg. No weakness. He is not on any blood thinning medications no history of DVT, PE. No chest pain or shortness of breath. Symptoms have been present since about 2:00 this afternoon. All other systems reviewed and negative except documented per HPI. Voice recognition software was used to help create this chart Allergies and Home Medications Allergies Coded Allergies: Penicillins (Unverified Allergy, Unknown, 11/19/15) morphine (Verified Allergy, Unknown, 01/13/19) Patient Home Medication List Home Medication List Reviewed: Yes Alprazolam (Alprazolam) 1 Mg Tablet, 1 MG PO DAILY, (Reported) Entered as Reported by: KELLI DRAKE on 01/13/19 06 Carvedilol (Carvedilol) 12.5 Mg Tablet, BID, (Reported) Entered as Reported by: KY VITALE on 11/19/15 1227 Escitalopram Oxalate (Lexapro) 20 Mg Tablet, 20 MG PO DAILY, (Reported) Entered as Reported by: KELLI DRAKE on 01/13/19 06 Ibuprofen (Ibuprofen) 800 Mg Tablet, 800 MG PO Q8H PRN for PAIN Prescribed by: WILLIE VALDERRAMA on 12/27/18 0803 Lisinopril (Lisinopril) 20 Mg Tablet, 20 MG PO DAILY, (Reported) Entered as Reported by: KELLI DRAKE on 01/13/19 0621 Sucralfate (Sucralfate) 1 Gm Tablet, (Reported) Entered as Reported by: KY VITALE on 11/19/15 1227 Review of Systems Constitutional: see HPI Past Erbwjvz-Ztmmgv-Mcenan Hx Patient Social History Tobacco Use?: No Use of E-Cig and/or Vaping dev: No Substance use?: No Alcohol Use?: No Seasonal Allergies Seasonal Allergies: No Past Medical History Surgeries: Yes Adenoidectomy, Tonsillectomy Respiratory: No Cardiac: Yes (chest pain, essential hypertension, acute costochondritis) Hypertension Neurological: Yes (vasovagal episode) Reproductive Disorders: No Sexually Transmitted Disease: No Genitourinary: Yes (renal insufficiency) Kidney Stones Gastrointestinal: Yes (chronic gastritis, abd pain, cyclical vomiting w/ nausea) Gastroesophageal Reflux, Irritable Bowel Musculoskeletal: Yes (right wrist pain, exercised-induced cramps of lower extremity) Endocrine: No HEENT: Yes (acute recurrent maxillary sinusitis, acute suppurative otitis media of rt) Cancer: No Psychosocial: Yes Anxiety Integumentary: No Blood Disorders: No Physical Exam Vital Signs Capillary Refill : Height, Weight, BMI Height: 6'0" Weight: 360lbs. 0oz. 163.642283jc; 48.00 BMI Method:Stated General Appearance: WD/WN, no apparent distress Cardiovascular: regular rate, rhythm, no murmur Respiratory: chest non-tender, lungs clear, normal breath sounds Legs: right leg other (Tenderness palpation right lateral leg. No calf tenderness. No swelling. Neurovascular motor and sensory intact. Good distal pulses.) Knees: bilateral knee non-tender, bilateral knee normal inspection, bilateral knee normal range of motion Ankles: bilateral ankle non-tender, bilateral ankle normal inspection, bilateral ankle normal range of motion Feet: bilateral foot non-tender, bilateral foot normal inspection, bilateral foot normal range of motion Neurologic/Tendon: normal sensation, normal motor functions, normal tendon functions Neurologic/Psychiatric: alert, oriented x 3 Skin: normal color, warm/dry Departure Communication (Admissions) I think this is likely related to nerve pain given the distribution. In talking with him further he does have some right hip, buttock pain over the last couple of days. 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 I advised we do not have ultrasound here but if his symptoms should persist he needs to follow-up for possible ultrasound. He states understanding. I did advise he return to care immediately if he develops any chest pain or shortness of breath any acknowledges, states understanding. Impression Primary Impression: Right leg pain Disposition: HOME, SELF-CARE Condition: Stable Departure-Patient Inst. Referrals: NO,LOCAL PHYSICIAN (PCP/Family) Primary Care Physician Patient Instructions: Sciatica (DC) Add. Discharge Instructions: Perform gentle stretching exercises. It may be helpful to get a foam roller and roll over the muscles of your lateral hip buttock. Use anti-inflammatory medicine such as Motrin or Aleve as needed. Follow-up for possible ultrasound should your symptoms persist. Return to the emergency department immediately for any chest pain or shortness of breath. SCOTTY SINGH DO Aug 09, 2023 23:03
== END 2023-08-09 23:16 | disposition home or self-care (01) ==
LOC: EDUNIT# 22:46 → ER FS 22:48
DX: M79.661 Pain in right lower leg (principal)
CPT/HCPCS: 99281